=== PATIENT | female | born 1995 | race Two or more races ===

== ENCOUNTER 2017-12-01 12:10 | Inpatient (IN) | payer OTHER ==
[2017-12-01] MEDS ORDERED: Sodium Chloride 0.9% 10 ML Syringe FLUSH PRN (12:39)
[2017-12-01] MEDS ORDERED: Oxytocin/Lactated Ringers 10 UNIT/1,000 ML BAG IV SCH (12:45)
[2017-12-01] MEDS ORDERED: diphenhydrAMINE 50 MG/ML SDV IVPUSH PRN (17:37)
[2017-12-01] MEDS ORDERED: ePHEDrine 50 MG/ML SDV IVPUSH PRN (17:37)
[2017-12-01] MEDS ORDERED: fentaNYL 100 MCG/2 ML SDV EPIDUR PRN (17:37)
[2017-12-01] MEDS ORDERED: Bupivacaine/fentaNYL/NS 100 ML Bag EPIDUR SCH (17:45)
[2017-12-01] MEDS: Nalbuphine 20 MG/ML 1 ML Syringe IVPUSH PRN ×2 (17:52→20:23)
--- NOTE | 2017-12-01 18:04 | PCM.HP ---
H&P History of Present Illness - General Date of Service: 12/01/17 Admit Problem/Dx: Admission Diagnosis/Problem Admission Diagnosis/Problem : Labor established Source of Information: Patient History Limitations: Reports: No Limitations - History of Present Illness Initial Comments - Free Text/Narative: Joanna is a 22-year-old 1 para 0 female who is admitted to labor and delivery. GARRISON is set at 12/11/17 by ultrasound done at 9 weeks 5/7 days on with uncertain last menstrual period date. Patient had menarche at age 10 and cycles occur every 28 days. Joanna was in [place] and had an unremarkable course. care started at 9 weeks and 5/7 days gestational age. She gained 15.2 pounds (from 213.8-229) during the course of the . Fundal height growth was appropriate. No problems were encountered. Vital signs remained stable throughout the course. Laboratory testing showed her blood type to be O+ with a negative antibody screen. Initial labs showed a hemoglobin of 14.2 and a platelet count of 272,000. She is rubella immune. RPR is nonreactive. Urine culture was unremarkable. Hepatitis B surface antigen and HIV assays were both negative. Chlamydia and gonorrhea both negative. Second trimester labs showed a hemoglobin of 12.6 and a platelet count of 272,000. One hour glucose tolerance test was normal at 115. Group B strep screen was done and found to be negative. She received TDAP vaccine on September 28, 2017. Allergies: None Medications: 1. vitamin 1 by mouth daily 2. Colace 100 mg oral capsule twice daily as needed for constipation 3. Ondansetron HCL 4 mg oral tablet taken by mouth every 4 hours PRN for nausea Past Medical History: 1. Exercise induced asthma; infrequent inhaler use as needed Past Surgical History: 1. Tonsillectomy 2014 Family History: Mother is alive with hypertension. She had gestational diabetes mellitus in . Dad is alive with AODM. Adopted. One brother alive and well. Two sisters alive. Maternal grandmother alive with AODM and hypertension. Maternal grandfather alive with a history of CVA, DVT, aneurism, and hypertension. No bleeding, other problems, or anesthesia concerns in family. Social History: Patient is in a relationship with the baby's father, Ari. They live in [place]. She does not use any significant amount of alcohol, drugs, or tobacco but does report some alcohol use early in the . 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 (In general patient presently feels well. She reports good activity.) Exam - Exam Exam: See Below - Vital Signs Vital Signs: Last Vital Signs Temp 97.1 F 12/01/17 12:39 Pulse 83 12/01/17 12:39 Resp 16 12/01/17 12:39 BP 137/77 12/01/17 12:39 Pulse Ox Weight: 230 lb 6.4 oz - Exam General: Alert, Oriented, Cooperative HEENT: Conjunctiva Clear, EACs Clear, EOMI, Hearing Intact, Mucosa Moist & [place] , Nares Patent, PERRLA Neck: Supple, Trachea Midline, 2 Lungs: Clear to Auscultation, Normal Respiratory Effort Cardiovascular: Regular Rate, Regular Rhythm GI/Abdominal Exam: Normal Bowel Sounds (Female) Exam: Normal External Exam (Changes associated with with increase in fundal height) Rectal (Female) Exam: Deferred Back Exam: Normal Inspection, Full Range of Motion, NT Extremities: Normal Inspection, Normal Range of Motion, Non-Tender, No Pedal Edema, Normal Capillary Refill Peripheral Pulses: 2+: Carotid (L), Carotid (R), Radial (L), Radial (R), Posterior Tibial (L), Posterior Tibial (R), Dorsalis Pedis (L), Dorsalis Pedis ( R) Skin: Warm, Dry, Intact Neurological: Cranial Nerves Intact, Reflexes Equal Bilateral Neuro Extensive - Mental Status: Alert, Oriented x3, Normal Mood/Affect, Normal Cognition Neuro Extensive - Motor, Sensory, Reflexes: CN II-XII Intact, Normal Gait Psychiatric: Alert, Normal Affect, Normal Mood Physical Exam Comments:: Blood pressure on last evaluation in clinic on 11/30 was 110/68. Weight was 229. Abdomen is protuberant from with a last fundal height of 38.5 cm and baby in vertex position. Cervical exam on 11/30 showed the cervix to be dilated to 2cm, 90% effaced, soft, and mid position. - Patient Data Lab Results Last 24 hrs: Laboratory Results - last 24 hr 12/01/17 Range/Units 13:15 WBC 10.91 H (3.98-10.04) K/mm3 RBC 4.18 (3.98-5.22) M/mm3 Hgb 13.3 (11.2-15.7) gm/L Hct 38.3 (34.1-44.9) % MCV 91.6 (79.4-94.8) fl MCH 31.8 (25.6-32.2) pg MCHC 34.7 (32.2-35.5) g/dl RDW Std Deviation 43.9 (36.4-46.3) fL Plt Count 269 (182-369) K/mm3 MPV 9.6 (9.4-12.3) fl Neut % (Auto) 81.4 H (34.0-71.1) % Lymph % (Auto) 12.6 L (19.3-51.7) % [place] % (Auto) 5.2 (4.7-12.5) % Eos % (Auto) 0.2 L (0.7-5.8) Baso % (Auto) 0.1 (0.1-1.2) % Neut # (Auto) 8.88 H (1.56-6.13) K/mm3 Lymph # (Auto) 1.37 (1.18-3.74) K/mm3 Ward # (Auto) 0.57 H (0.24-0.36) K/mm3 Eos # (Auto) 0.02 L (0.04-0.36) K/mm3 Baso # (Auto) 0.01 (0.01-0.08) K/mm3 Result Diagrams: 12/01/17 13:15 - Problem List (1) SNOMED Code(s): 69357935 ICD Code: Z34.90 - ENCNTR FOR SUPRVSN OF NORMAL , UNSP, UNSP TRIMESTER Status: Acute Current Visit: Yes Problem List Initiated/Reviewed/Updated: Yes Orders Last 24hrs: Active Orders 24 hr Category Date Time Status Admission Status [Patient Status] [ADT] Routine ADT 12/01/17 12:42 Active Activity as Tolerated [RC] PFP Care 12/01/17 12:39 Active Communication Order [RC] ASDIRECTED Care 12/01/17 12:39 Active Heart Tones [RC] ASDIRECTED Care 12/01/17 12:39 Active Notify Provider [RC] ASDIRECTED Care 12/01/17 17:37 Active Notify Provider [RC] PFP Care 12/01/17 12:39 Active Notify Provider [RC] PRN Care 12/01/17 12:39 Active Peripheral IV Care [RC] . DIRECTED Care 12/01/17 12:39 Active Vital Signs [RC] PER UNIT ROUTINE Care 12/01/17 12:39 Active Clear Liquid Diet [DIET] Diet 12/01/17 Lunch Active Regular Diet [DIET] Diet 12/01/17 Dinner Active RAPID PLASMA REAGIN,RPR [CHEM] Routine Lab 12/01/17 13:15 Received Bupivacaine/fentaNYL/NS [fentaNYL/Bupivacaine/NS 2 MCG- Med 12/01/17 17:45 Ordered 0.125% 100 ML] 100 ml EPIDUR ASDIRECTED Lactated Ringers [Ringers, Lactated] 1,000 ml Med 12/01/17 12:45 Active IV ASDIRECTED Nalbuphine [Nubain] Med 12/01/17 12:39 Active 10 mg IVPUSH Q2H PRN Oxytocin/Lactated Ringers [Pitocin in LR 10 Units/1,000 Med 12/01/17 12:45 Active ML] 10 unit in 1,000 ml IV .CONTINUOUS Sodium Chloride 0.9% [Saline Flush] Med 12/01/17 12:39 Active 10 ml FLUSH ASDIRECTED PRN diphenhydrAMINE [Benadryl] Med 12/01/17 17:37 Ordered 25 mg IVPUSH Q6H PRN ePHEDrine [ePHEDrine Sulfate] Med 12/01/17 17:37 Ordered 5 mg IVPUSH ASDIRECTED PRN fentaNYL [Sublimaze] Med 12/01/17 17:37 Ordered 100 mcg EPIDUR Q3H PRN Electronic Heart Tones Ext w TOCO [WOMSER] Oth 12/01/17 12:39 Ordered Routine Electronic Heart Tones Internal [WOMSER] Per Unit Oth 12/01/17 12:39 Ordered Routine Peripheral IV Insertion Adult [OM.PC] Routine Oth 12/01/17 12:39 Ordered Resuscitation Status Routine Resus Stat 12/01/17 12:39 Ordered Medication Orders Diphenhydramine HCl (Benadryl) 25 mg IVPUSH Q6H PRN PRN Reason: pruritis Ephedrine Sulfate (Ephedrine Sulfate) 5 mg IVPUSH ASDIRECTED PRN PRN Reason: Hypotension Fentanyl (Sublimaze) 100 mcg EPIDUR Q3H PRN PRN Reason: Pain Fentanyl/Bupivacaine HCl (Fentanyl/Bupivacaine/Ns 2 Mcg-0.125% 100 Ml) 100 ml EPIDUR ASDIRECTED AMADOR Lactated Ringer's (Ringers, Lactated) 1,000 mls @ 100 mls/hr IV ASDIRECTED AMADOR Oxytocin/Lactated Ringer's (Pitocin In Lr 10 Units/1,000 Ml) 10 unit in 1,000 mls @ 500 mls/hr IV .CONTINUOUS AMADOR Nalbuphine HCl (Nubain) 10 mg IVPUSH Q2H PRN PRN Reason: pain Sodium Chloride (Saline Flush) 10 ml FLUSH ASDIRECTED PRN PRN Reason: Keep Vein Open Assessment/Plan Comment:: Assessment 1. 38 4/7 week intrauterine upon admission, in early labor * Presented at 1215 hours with cervical dilation of 3-4 cm and contractions every 3-5 minutes * At 1800 hours, cervix 4+ cm dilated, 95% effaced, and Dr. Liz ruptured membranes with clear fluid 2. Rubella immune, GBS negative, O+ blood type 3. Patient plans to breast feed Plan 1. Anticipate normal spontaneous vaginal delivery 2. Patient desires natural childbirth, but is okay with epidural if needed 3. Support desire
[2017-12-01] MEDS: Lactated Ringers 1,000 ML IV SCH ×2 (20:54→22:06)
--- NOTE | 2017-12-01 21:32 | PCM.PREANE ---
Preanesthetic Assessment - Procedure Proposed Procedure: gokul - Anesthesia/Transfusion/Family Hx Anesthesia History: Prior Anesthesia Without Reaction Family History of Anesthesia Reaction: No Transfusion History: No Prior Transfusion(s) - Review of Systems General: No Symptoms Pulmonary: No Symptoms Cardiovascular: No Symptoms Gastrointestinal: No Symptoms Neurological: No Symptoms Other: Reports: None - Physical Assessment Respiratory Rate: 16 Vital Signs: Last Vital Signs Temp 97.1 F 12/01/17 12:39 Pulse 83 12/01/17 12:39 Resp 16 12/01/17 12:39 BP 137/77 12/01/17 12:39 Pulse Ox Height: 5 ft 4 in Weight: 104.508 kg ASA Class: 2 Mental Status: Alert & Oriented x3 Airway Class: Mallampati = 1 Dentition: Reports: Normal Dentition Thyro-Mental Finger Breadths: 3 Mouth Opening Finger Breadths: 3 ROM/Head Extension: Full Lungs: Clear to Auscultation, Normal Respiratory Effort Cardiovascular: Regular Rate, Regular Rhythm - Lab Values: Laboratory Last Values WBC 10.91 K/mm3 (3.98-10.04) H 12/01/17 13:15 RBC 4.18 M/mm3 (3.98-5.22) 12/01/17 13:15 Hgb 13.3 gm/L (11.2-15.7) 12/01/17 13:15 Hct 38.3 % (34.1-44.9) 12/01/17 13:15 MCV 91.6 fl (79.4-94.8) 12/01/17 13:15 MCH 31.8 pg (25.6-32.2) 12/01/17 13:15 MCHC 34.7 g/dl (32.2-35.5) 12/01/17 13:15 RDW Std Deviation 43.9 fL (36.4-46.3) 12/01/17 13:15 Plt Count 269 K/mm3 (182-369) 12/01/17 13:15 MPV 9.6 fl (9.4-12.3) 12/01/17 13:15 Neut % (Auto) 81.4 % (34.0-71.1) H 12/01/17 13:15 Lymph % (Auto) 12.6 % (19.3-51.7) L 09/12/18 13:15 [place] % (Auto) 5.2 % (4.7-12.5) 12/01/17 13:15 Eos % (Auto) 0.2 (0.7-5.8) L 12/01/17 13:15 Baso % (Auto) 0.1 % (0.1-1.2) 12/01/17 13:15 Neut # (Auto) 8.88 K/mm3 (1.56-6.13) H 12/01/17 13:15 Lymph # (Auto) 1.37 K/mm3 (1.18-3.74) 12/01/17 13:15 [place] # (Auto) 0.57 K/mm3 (0.24-0.36) H 12/01/17 13:15 Eos # (Auto) 0.02 K/mm3 (0.04-0.36) L 12/01/17 13:15 Baso # (Auto) 0.01 K/mm3 (0.01-0.08) 12/01/17 13:15 - Allergies Allergies/Adverse Reactions: Allergies Allergy/AdvReac Type Severity Reaction Status Date / Time No Known Allergies Allergy Verified 12/01/17 12:39 - Blood Blood Available: No - Acknowledgements Anesthesia Type Planned: Epidural Pt an Appropriate Candidate for the Planned Anesthesia: Yes Alternatives and Risks of Anesthesia Discussed w Pt/Guardian: Yes Pt/Guardian Understands and Agrees with Anesthesia Plan: Yes PreAnesthesia Questionnaire Cardiovascular History: Reports: None Respiratory History: Reports: Asthma (exercise induced) 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: 0 - Past Surgical History HEENT Surgical History: Reports: Tonsillectomy - SUBSTANCE USE Smoking Status *Q: Former Smoker (quit 2 years ago) Tobacco Use Within Last Twelve Months: No Second Hand Smoke Exposure: No Days Per Week of Alcohol Use: 0 Recreational Drug Use History: No - HOME MEDS Home Medications: Home Meds Vits #93/Iron Fum/FA [ Formula Tablet] 1 each PO DAILY [History] - CURRENT (IN HOUSE) MEDS Current Meds: Current Medications Diphenhydramine HCl (Benadryl) 25 mg IVPUSH Q6H PRN PRN Reason: pruritis Ephedrine Sulfate (Ephedrine Sulfate) 5 mg IVPUSH ASDIRECTED PRN PRN Reason: Hypotension Fentanyl (Sublimaze) 100 mcg EPIDUR Q3H PRN PRN Reason: Pain Fentanyl/Bupivacaine HCl (Fentanyl/Bupivacaine/Ns 2 Mcg-0.125% 100 Ml) 100 ml EPIDUR ASDIRECTED AMADOR Lactated Ringer's (Ringers, Lactated) 1,000 mls @ 100 mls/hr IV ASDIRECTED AMADOR Last Admin: 12/01/17 20:54 Dose: 100 mls/hr Oxytocin/Lactated Ringer's (Pitocin In Lr 10 Units/1,000 Ml) 10 unit in 1,000 mls @ 500 mls/hr IV .CONTINUOUS AMADOR Nalbuphine HCl (Nubain) 10 mg IVPUSH Q2H PRN PRN Reason: pain Last Admin: 12/01/17 20:23 Dose: 10 mg Sodium Chloride (Saline Flush) 10 ml FLUSH ASDIRECTED PRN PRN Reason: Keep Vein Open
[2017-12-02] MEDS ORDERED: Bupivacaine 0.25% 10 ML SDV ONE (01:00)
[2017-12-02] MEDS ORDERED: Albuterol 6.7 GM Inhaler INH PRN (01:24)
[2017-12-02] MEDS ORDERED: Oxytocin/Lactated Ringers 10 UNIT/1,000 ML BAG IV SCH (01:30)
[2017-12-02] MEDS ORDERED: Witch Hazel Medicated Pads 100/Jar TOP PRN (04:20)
[2017-12-02] MEDS ORDERED: Lanolin 100% Cream 7 GM Tube TOP PRN (04:20)
[2017-12-02] MEDS ORDERED: Benzocaine/Menthol 20%-0.5% Spray 56 GM Canister TOP PRN ×2 (04:20→20:24)
[2017-12-02] MEDS ORDERED: Acetaminophen 325 MG Tab PO PRN (04:20)
[2017-12-02] MEDS ORDERED: Ibuprofen 600 MG Tab PO PRN (04:20)
[2017-12-02] MEDS ORDERED: Docusate Sodium 100 MG Cap PO PRN (04:20)
--- NOTE | 2017-12-02 04:25 | PCM.SN ---
- Free Text/Narrative Note: Labor and delivery note: Joanna is a 22-year-old 1 now para 1001 female was admitted on 2017 in early active labor. She has an GARRISON of 12/11/2017 but appeared to be dilating and progressive slowly changing her cervix. She was admitted at 4 cm, 90% effaced, soft, mid position. He is monitored for short period time and one early labor was confirmed patient underwent artificial rupture membranes with resultant clear amniotic fluid. She progressed steadily to about 8 cm using Nubain for pain control. At 8 cm patient opted for an epidural. She progressed to complete cervical dilation and pushed for approximately 3-1/2 hours spontaneously delivered a viable, pizano, male with Apgars of 8 and 9 , a length of 19.5 inches, overweight of 6 pounds 10.9 ounces (3030 g) in a direct occiput anterior position. Shoulders delivered and baby was completely delivered and placed on mom's abdomen Cord was clamped 2 and cut by the baby's father after about 30-60 seconds worth of pulsation was allowed. The umbilical cord had 3 vessels. The placenta did not detach and deliver first 1 hour after baby delivered and therefore patient was monitored. No significant bleeding was noted. After approximately an hour and half the time of delivery placenta still had not delivered. There appears to be a circular band in the lower uterine segment just above the cervix which appears to be contracted and causing the placenta to remain in utero. Patient has had approximately 200 mL of bleeding total since the time of delivery. She has been maintained on IV Pitocin since delivery. She still has epidural in place. Assessment: 1. Normal spontaneous vaginal delivery. 2. Retained placenta. Plan: 1. We'll bolster the epidural to anesthetic effect and proceed with exam under anesthesia and removal of placenta. The procedure, risks, benefits, alternatives of care including continued monitoring all discussed with patient. She appears to understand and wishes to proceed. Consent is signed. Discussion has been held with patient concerning possibility of an adherent placenta, placenta accreta and possible need for more surgery up to and potentially including hysterectomy. She appears understand and would like us to proceed. 2. Ancef 2 g IV preop for infection prophylaxis 3. SCDs intraoperatively
[2017-12-02] MEDS ORDERED: Methylergonovine 0.2 MG/1 ML Amp ONE ×2 (04:30→07:03)
[2017-12-02] MEDS ORDERED: Methylergonovine 0.2 MG/1 ML Amp IM STA (05:02)
[2017-12-02] MEDS: Lactated Ringers 1,000 ML IV SCH ×2 (05:07→05:51)
[2017-12-02] MEDS ORDERED: ceFAZolin 2 GM in Premix Bag 1 BAG IV ONE (06:18)
[2017-12-02] MEDS ORDERED: Lidocaine 2% with EPINEPHrine 1:200,000 20 ML SDV ONE (06:29)
[2017-12-02] MEDS ORDERED: Sodium Bicarbonate 8.4% 50 MEQ/50 ML SDV ONE (06:29)
[2017-12-02] MEDS ORDERED: fentaNYL 100 MCG/2 ML SDV ONE ×2 (06:30→06:56)
[2017-12-02] MEDS ORDERED: Meperidine PF 50 MG/ML Syringe IVPUSH PRN (06:52)
[2017-12-02] MEDS ORDERED: Ondansetron 4 MG/2 ML SDV IVPUSH PRN (06:52)
[2017-12-02] MEDS ORDERED: fentaNYL 100 MCG/2 ML SDV IVPUSH PRN (06:52)
[2017-12-02] MEDS ORDERED: HYDROmorphone 0.5 MG/0.5 ML Syringe IVPUSH PRN (06:52)
[2017-12-02] MEDS ORDERED: Midazolam 1 MG/ML 2 ML SDV ONE (06:56)
[2017-12-02] MEDS ORDERED: Lactated Ringers 1,000 ML ONE (07:03)
--- NOTE | 2017-12-02 07:37 | PCM.POSTAN ---
POST ANESTHESIA ASSESSMENT - MENTAL STATUS Mental Status: Alert, Oriented - VITAL SIGNS Pulse Rate: 74 SaO2: 99 Resp Rate: 22 Blood Pressure: 96/65 Temperature: 97.6 F - RESPIRATORY Respiratory Status: Respiratory Rate WNL, Airway Patent, O2 Saturation Stable, Supplemental Oxygen - CARDIOVASCULAR CV Status: Pulse Rate WNL, Blood Pressure Stable - GASTROINTESTINAL GI Status: No Symptoms - PAIN Pain Score: 0 - POST OP HYDRATION Hydration Status: Adequate & Stable
--- NOTE | 2017-12-02 07:37 | PCM.OPNOTE ---
- General Post-Op/Procedure Note Date of Surgery/Procedure: 12/02/17 Findings: Retained placenta Pre Op Diagnosis: Term , deliveredretained placenta Post-Op Diagnosis: Same Anesthesia Technique: Epidural Primary Surgeon: Wily Liz Secondary Surgeon: Ariana Benavides Anesthesia Provider: Dc Romero Reason Sorority Supervisor Was Necessary: Retraction, assistance, patient safety, quality of care Role of Sorority Supervisor: Same Fluid Replacement, Intraop: 1,000 EBL in mLs: 1,000 Complications: None Condition: Good Free Text/Narrative:: Surgery duration: 28 minutes Procedure: Patient is brought to the operating room and placed in a supine position operating table. Patient already had an epidural in place from her labor and analgesia. The epidural was bolstered 2 anesthetic level. She was placed in dorsal lithotomy position and prepped in usual fashion. She received 2 g of Ancef IV. She had sequential compression stockings in place for DVT prophylaxis. A weighted speculum was placed in the vagina. The anterior lip the cervix was grasped with a ring forceps. Attempt was made to tease the placenta out. The placenta did come out, but in piecemeal fashion. All material removed was discarded. It appeared that the placental fragments were somewhat adherent to the uterus. A large curette was then introduced and attempt was made to curet the endometrial cavity. A 14 mm suction curette was also used to evacuate the uterine cavity. Methergine 0.2 mg IM was given to facilitate a contraction the uterus and decrease size. This worked well and patient had good uterine firmness related to this. During the procedure it was felt that most, if not all of the placenta had been removed. This however could not be entirely confirmed. The patient had a right vaginal and right labial laceration from delivery. The labial portion of this laceration had opened with the manipulation that occurred in the removal of the placenta in the OR. This was reapproximated with a short running suture of 3-0 Monocryl. Patient was returned to supine position and was discharged from the operating room in good condition.
[2017-12-02] MEDS ORDERED: Methylergonovine 0.2 MG/1 ML Amp IM SCH (07:55)
[2017-12-02] MEDS: Methylergonovine 0.2 MG/1 ML Amp IM SCH ×2 (11:16→15:06)
[2017-12-02] MEDS: Ibuprofen 600 MG Tab PO PRN ×2 (12:24→18:21)
[2017-12-03] MEDS: Ibuprofen 600 MG Tab PO PRN ×4 (00:18→22:43)
[2017-12-03] MEDS: Acetaminophen 325 MG Tab PO PRN ×2 (05:38→20:13)
--- NOTE | 2017-12-03 07:56 | PCM48HPAN ---
Post Anesthesia Note - EVALUATION WITHIN 48HRS OF ANESTHETIC Vital Signs in Normal Range: Yes Patient Participated in Evaluation: Yes Respiratory Function Stable: Yes Airway Patent: Yes Cardiovascular Function Stable: Yes Hydration Status Stable: Yes Pain Control Satisfactory: Yes Nausea and Vomiting Control Satisfactory: Yes Mental Status Recovered: Yes
[2017-12-03] MEDS ORDERED: Witch Hazel Medicated Pads 100/Jar TOP PRN (10:30)
--- NOTE | 2017-12-04 07:09 | PCM.PNPP ---
- General Info Date of Service: 12/04/17 Functional Status: Reports: Pain Controlled, Tolerating Diet, Ambulating, Urinating - Review of Systems General: Reports: No Symptoms Pulmonary: Reports: No Symptoms Cardiovascular: Reports: No Symptoms Gastrointestinal: Reports: No Symptoms Genitourinary: Reports: No Symptoms (Denies any heavy bleeding ) Musculoskeletal: Reports: No Symptoms - Patient Data Vital Signs - Most Recent: Last Vital Signs Temp 36.4 C 12/04/17 03:45 Pulse 82 12/04/17 03:45 Resp 16 12/03/17 20:20 BP 112/69 12/04/17 03:45 Pulse Ox 99 12/04/17 03:45 Weight - Most Recent: 104.508 kg Med Orders - Current: Current Medications Acetaminophen (Tylenol) 650 mg PO Q4H PRN PRN Reason: mild pain or fever Last Admin: 12/03/17 20:13 Dose: 650 mg Benzocaine/Menthol (Dermoplast Pain Relief [place]) 56 gm TOP ASDIRECTED PRN PRN Reason: Pain Last Admin: 12/02/17 22:12 Dose: 1 applic Ibuprofen (Motrin) 600 mg PO Q4H PRN PRN Reason: Mild pain or fever Last Admin: 12/03/17 22:43 Dose: 600 mg Witch Eboni (Tucks) 1 pad TOP ASDIRECTED PRN PRN Reason: Pain Discontinued Medications Acetaminophen (Tylenol) 650 mg PO Q4H PRN PRN Reason: mild pain or fever Albuterol (Proventil Hfa) 0 gm INH Q4H PRN PRN Reason: Shortness of Breath Last Admin: 12/02/17 01:45 Dose: 2 puff Benzocaine/Menthol (Dermoplast Pain Relief [place]) 0 gm TOP ASDIRECTED PRN PRN Reason: Perineal Comfort Measure Bupivacaine HCl (Sensorcaine-Mpf 0.25%) 10 ml .ROUTE .STK-MED ONE Stop: 12/02/17 01:01 Diphenhydramine HCl (Benadryl) 25 mg IVPUSH Q6H PRN PRN Reason: pruritis Docusate Sodium (Colace) 100 mg PO BID PRN PRN Reason: Constipation Emollient Ointment (Lansinoh Hpa) 0 gm TOP ASDIRECTED PRN PRN Reason: Sore Nipples Ephedrine Sulfate (Ephedrine Sulfate) 5 mg IVPUSH ASDIRECTED PRN PRN Reason: Hypotension Fentanyl (Sublimaze) 100 mcg EPIDUR Q3H PRN PRN Reason: Pain Last Admin: 12/01/17 21:32 Dose: 100 mcg Fentanyl (Sublimaze) Confirm Administered Dose 100 mcg .ROUTE .STK-MED ONE Stop: 12/02/17 06:31 Fentanyl (Sublimaze) 50 mcg IVPUSH Q5M PRN PRN Reason: Pain Fentanyl (Sublimaze) Confirm Administered Dose 100 mcg .ROUTE .STK-MED ONE Stop: 12/02/17 06:57 Fentanyl/Bupivacaine HCl (Fentanyl/Bupivacaine/Ns 2 Mcg-0.125% 100 Ml) 100 ml EPIDUR ASDIRECTED AMADOR Last Admin: 12/01/17 21:32 Dose: 100 ml Hydromorphone HCl (Dilaudid) 0.5 mg IVPUSH ONETIME PRN PRN Reason: Pain (severe 7-10) Lactated Ringer's (Ringers, Lactated) 1,000 mls @ 100 mls/hr IV ASDIRECTED AMADOR Last Admin: 12/01/17 22:06 Dose: 100 mls/hr Oxytocin/Lactated Ringer's (Pitocin In Lr 10 Units/1,000 Ml) 10 unit in 1,000 mls @ 500 mls/hr IV .CONTINUOUS AMADOR Oxytocin/Lactated Ringer's (Pitocin In Lr 10 Units/1,000 Ml) 10 unit in 1,000 mls @ 12 mls/hr IV TITRATE AMADOR; Protocol Last Titration: 12/02/17 04:20 Dose: 50 mls/hr Lactated Ringer's (Ringers, Lactated) 1,000 mls @ 150 mls/hr IV ASDIRECTED AMADOR Last Admin: 12/02/17 05:51 Dose: 150 mls/hr Cefazolin Sodium/Dextrose 2 gm (/ Premix) 50 mls @ 100 mls/hr IV ONETIME ONE Stop: 12/02/17 06:47 Last Admin: 12/02/17 20:03 Dose: Not Given Lactated Ringer's (Ringers, Lactated) Confirm Administered Dose 1,000 mls @ as directed .ROUTE .STK-MED ONE Stop: 12/02/17 07:04 Ibuprofen (Motrin) 600 mg PO Q4H PRN PRN Reason: Mild pain or fever Lidocaine/Epinephrine (Xylocaine-Mpf 2%-Epi 1:200,000) Confirm Administered Dose 20 ml .ROUTE .Reclog-MED ONE Stop: 12/02/17 06:30 Meperidine HCl (Demerol) 12.5 mg IVPUSH ONETIME PRN PRN Reason: shivering Methylergonovine Maleate (Methergine) Confirm Administered Dose 0.2 mg .ROUTE .Reclog-MED ONE Stop: 12/02/17 04:31 Last Admin: 12/02/17 05:05 Dose: 0.2 mg Methylergonovine Maleate (Methergine) 0.2 mg IM NOW STA Stop: 12/02/17 05:03 Last Admin: 12/02/17 07:07 Dose: Not Given Methylergonovine Maleate (Methergine) Confirm Administered Dose 0.2 mg .ROUTE .Reclog-MED ONE Stop: 12/02/17 07:04 Last Admin: 12/02/17 07:10 Dose: 0.2 mg Methylergonovine Maleate (Methergine) 0.2 mg IM Q4H [facility] Last Admin: 12/02/17 08:51 Dose: Not Given Methylergonovine Maleate (Methergine) 0.2 mg IM Q4H [facility] Last Admin: 12/02/17 15:06 Dose: Not Given Midazolam HCl (Versed 1 Mg/Ml) Confirm Administered Dose 2 mg .ROUTE .Reclog-MED ONE Stop: 12/02/17 06:57 Nalbuphine HCl (Nubain) 10 mg IVPUSH Q2H PRN PRN Reason: pain Last Admin: 12/01/17 20:23 Dose: 10 mg Ondansetron HCl (Zofran) 4 mg IVPUSH ONETIME PRN PRN Reason: Nausea/Vomiting Sodium Bicarbonate (Sodium Bicarbonate 8.4%) Confirm Administered Dose 50 meq .ROUTE .Reclog-MED ONE Stop: 12/02/17 06:30 Sodium Chloride (Saline Flush) 10 ml FLUSH ASDIRECTED PRN PRN Reason: Keep Vein Open Witch Eboni (Tucks) 1 pad TOP ASDIRECTED PRN PRN Reason: Hemorrhoid pain - Interaction Disposition, : [place] in Room with Family Infant Interaction: Holding Infant Feeding: Attempted ; Nursed Fair/Poor Support Person: Significant Other - Recovery Exam Fundal Tone: Firm Fundal Level: At Umbilicus Fundal Placement: Midline Lochia Amount: Small Lochia Color: Rubra/Red Perineum Description: Intact, Minimal Bruising/Swelling Other Perinuem Description: repaired x 2 Episiotomy/Laceration: Approximated Bladder Status: Voiding Urinary Elimination: Voided Other Urinary Elimination, : pt states it is burning, dermaplast issued and instructed pt how to use - Exam General: Alert, Oriented, Cooperative GI/Abdominal Exam: Soft, Non-Tender Extremities: Normal Inspection Skin: Warm, Dry, Intact - Problem List & Annotations (1) 38 weeks gestation of SNOMED Code(s): 47495896 Code(s): Z3A.38 - 38 WEEKS GESTATION OF Status: Acute Current Visit: Yes (2) Normal labor SNOMED Code(s): 87949898 Code(s): O80 - ENCOUNTER FOR FULL-TERM UNCOMPLICATED DELIVERY; Z37.9 - OUTCOME OF DELIVERY, UNSPECIFIED Status: Acute Current Visit: Yes (3) Vaginal delivery SNOMED Code(s): 131767758 Code(s): O80 - ENCOUNTER FOR FULL-TERM UNCOMPLICATED DELIVERY Status: Acute Current Visit: Yes (4) Retained placenta SNOMED Code(s): 135100386 Code(s): O73.0 - RETAINED PLACENTA WITHOUT HEMORRHAGE Status: Acute Current Visit: Yes (5) S/P D&C (status post dilation and curettage) SNOMED Code(s): 831884850, 96687841, 067307775 Code(s): Z98.890 - OTHER SPECIFIED POSTPROCEDURAL STATES Status: Acute Current Visit: Yes - Problem List Review Problem List Initiated/Reviewed/Updated: Yes - Assessment Assessment:: 22 y/o G1 now P1001 PPD #2 from at 38 4/7 wks - Plan Plan:: * Routine cares * Encourage breast feeding * Minimal bleeding currently. Reviewed precautions. Follow up with Dr. Liz in 2 weeks * Discharge home today
[2017-12-04] MEDS: Ibuprofen 600 MG Tab PO PRN (07:35)
--- NOTE | 2017-12-04 07:55 | PCM.DCSUM1 ---
Discharge Summary - Discharge Data Discharge Date: 12/04/17 Discharge Disposition: Home, Self-Care 01 Condition: Good - Discharge Diagnosis/Problem(s) (1) 38 weeks gestation of SNOMED Code(s): 99718386 ICD Code: Z3A.38 - 38 WEEKS GESTATION OF Status: Acute Current Visit: Yes (2) Normal labor SNOMED Code(s): 39793155 ICD Code: O80 - ENCOUNTER FOR FULL-TERM UNCOMPLICATED DELIVERY; Z37.9 - OUTCOME OF DELIVERY, UNSPECIFIED Status: Acute Current Visit: Yes (3) Vaginal delivery SNOMED Code(s): 170908637 ICD Code: O80 - ENCOUNTER FOR FULL-TERM UNCOMPLICATED DELIVERY Status: Acute Current Visit: Yes (4) Retained placenta SNOMED Code(s): 518059181 ICD Code: O73.0 - RETAINED PLACENTA WITHOUT HEMORRHAGE Status: Acute Current Visit: Yes Qualifiers: Retained placenta detail: complete placenta Qualified Code(s): O73.0 - Retained placenta without hemorrhage (5) S/P D&C (status post dilation and curettage) SNOMED Code(s): 061456429, 55175788, 323273667 ICD Code: Z98.890 - OTHER SPECIFIED POSTPROCEDURAL STATES Status: Acute Current Visit: Yes - Patient Summary/Data Complications: None Consults: None Recommended Follow-up Testing/Procedures: Follow up in 2 weeks for check Hospital Course: 22 y/o at 38 4/7 wks presented in labor. She progressed well and underwent a vaginal delivery. She did have a retained placenta which required a D&C. See operative note. she did well and otherwise was meeting all goals. Was discharged home on PPD#2 - Patient Instructions Diet: Regular Diet as Tolerated Activity: As Tolerated Activity, Other: Pelvic Rest for 6 weeks Driving: May Drive Today Showering/Bathing: May Shower Showering/Bathing, Other: May Bathe Notify Provider of: Fever, Increased Pain, Swelling and Redness, Drainage, Nausea and/or Vomiting - Discharge Plan *PRESCRIPTION DRUG MONITORING PROGRAM REVIEWED*: Not Applicable *COPY OF PRESCRIPTION DRUG MONITORING REPORT IN PATIENT WILI: Not Applicable Home Medications: Home Meds Vits #93/Iron Fum/FA [ Formula Tablet] 1 each PO DAILY [History] Acetaminophen [Tylenol] 650 mg PO Q4H PRN tablet 12/03/17 [Rx] Ibuprofen [Motrin] 600 mg PO Q4H PRN tablet 12/03/17 [Rx] Referrals: Wily Liz MD [Primary Care Provider] - (2 weeks ) - Discharge Summary/Plan Comment DC Time >30 min.: No - Patient Data Vitals - Most Recent: Last Vital Signs Temp 36.4 C 12/04/17 03:45 Pulse 82 12/04/17 03:45 Resp 16 12/03/17 20:20 BP 112/69 12/04/17 03:45 Pulse Ox 99 12/04/17 03:45 Weight - Most Recent: 104.508 kg Med Orders - Current: Current Medications Acetaminophen (Tylenol) 650 mg PO Q4H PRN PRN Reason: mild pain or fever Last Admin: 12/03/17 20:13 Dose: 650 mg Benzocaine/Menthol (Dermoplast Pain Relief [place]) 56 gm TOP ASDIRECTED PRN PRN Reason: Pain Last Admin: 12/02/17 22:12 Dose: 1 applic Ibuprofen (Motrin) 600 mg PO Q4H PRN PRN Reason: Mild pain or fever Last Admin: 12/04/17 07:35 Dose: 600 mg Witch [place] (Tucks) 1 pad TOP ASDIRECTED PRN PRN Reason: Pain Discontinued Medications Acetaminophen (Tylenol) 650 mg PO Q4H PRN PRN Reason: mild pain or fever Albuterol (Proventil Hfa) 0 gm INH Q4H PRN PRN Reason: Shortness of Breath Last Admin: 12/02/17 01:45 Dose: 2 puff Benzocaine/Menthol (Dermoplast Pain Relief [place]) 0 gm TOP ASDIRECTED PRN PRN Reason: Perineal Comfort Measure Bupivacaine HCl (Sensorcaine-Mpf 0.25%) 10 ml .ROUTE .STK-MED ONE Stop: 12/02/17 01:01 Diphenhydramine HCl (Benadryl) 25 mg IVPUSH Q6H PRN PRN Reason: pruritis Docusate Sodium (Colace) 100 mg PO BID PRN PRN Reason: Constipation Emollient Ointment (Lansinoh Hpa) 0 gm TOP ASDIRECTED PRN PRN Reason: Sore Nipples Ephedrine Sulfate (Ephedrine Sulfate) 5 mg IVPUSH ASDIRECTED PRN PRN Reason: Hypotension Fentanyl (Sublimaze) 100 mcg EPIDUR Q3H PRN PRN Reason: Pain Last Admin: 12/01/17 21:32 Dose: 100 mcg Fentanyl (Sublimaze) Confirm Administered Dose 100 mcg .ROUTE .STK-MED ONE Stop: 12/02/17 06:31 Fentanyl (Sublimaze) 50 mcg IVPUSH Q5M PRN PRN Reason: Pain Fentanyl (Sublimaze) Confirm Administered Dose 100 mcg .ROUTE .STK-MED ONE Stop: 12/02/17 06:57 Fentanyl/Bupivacaine HCl (Fentanyl/Bupivacaine/Ns 2 Mcg-0.125% 100 Ml) 100 ml EPIDUR ASDIRECTED AMADOR Last Admin: 12/01/17 21:32 Dose: 100 ml Hydromorphone HCl (Dilaudid) 0.5 mg IVPUSH ONETIME PRN PRN Reason: Pain (severe 7-10) Lactated Ringer's (Ringers, Lactated) 1,000 mls @ 100 mls/hr IV ASDIRECTED AMADOR Last Admin: 12/01/17 22:06 Dose: 100 mls/hr Oxytocin/Lactated Ringer's (Pitocin In Lr 10 Units/1,000 Ml) 10 unit in 1,000 mls @ 500 mls/hr IV .CONTINUOUS AMADOR Oxytocin/Lactated Ringer's (Pitocin In Lr 10 Units/1,000 Ml) 10 unit in 1,000 mls @ 12 mls/hr IV TITRATE AMADOR; Protocol Last Titration: 12/02/17 04:20 Dose: 50 mls/hr Lactated Ringer's (Ringers, Lactated) 1,000 mls @ 150 mls/hr IV ASDIRECTED AMADOR Last Admin: 12/02/17 05:51 Dose: 150 mls/hr Cefazolin Sodium/Dextrose 2 gm (/ Premix) 50 mls @ 100 mls/hr IV ONETIME ONE Stop: 12/02/17 06:47 Last Admin: 12/02/17 20:03 Dose: Not Given Lactated Ringer's (Ringers, Lactated) Confirm Administered Dose 1,000 mls @ as directed .ROUTE .STK-MED ONE Stop: 12/02/17 07:04 Ibuprofen (Motrin) 600 mg PO Q4H PRN PRN Reason: Mild pain or fever Lidocaine/Epinephrine (Xylocaine-Mpf 2%-Epi 1:200,000) Confirm Administered Dose 20 ml .ROUTE .NewsPin-Muzeek ONE Stop: 12/02/17 06:30 Meperidine HCl (Demerol) 12.5 mg IVPUSH ONETIME PRN PRN Reason: shivering Methylergonovine Maleate (Methergine) Confirm Administered Dose 0.2 mg .ROUTE .Neurala ONE Stop: 12/02/17 04:31 Last Admin: 12/02/17 05:05 Dose: 0.2 mg Methylergonovine Maleate (Methergine) 0.2 mg IM NOW STA Stop: 12/02/17 05:03 Last Admin: 12/02/17 07:07 Dose: Not Given Methylergonovine Maleate (Methergine) Confirm Administered Dose 0.2 mg .ROUTE .Neurala ONE Stop: 12/02/17 07:04 Last Admin: 12/02/17 07:10 Dose: 0.2 mg Methylergonovine Maleate (Methergine) 0.2 mg IM Q4H [facility] Last Admin: 12/02/17 08:51 Dose: Not Given Methylergonovine Maleate (Methergine) 0.2 mg IM Q4H [facility] Last Admin: 12/02/17 15:06 Dose: Not Given Midazolam HCl (Versed 1 Mg/Ml) Confirm Administered Dose 2 mg .ROUTE .Neurala ONE Stop: 12/02/17 06:57 Nalbuphine HCl (Nubain) 10 mg IVPUSH Q2H PRN PRN Reason: pain Last Admin: 12/01/17 20:23 Dose: 10 mg Ondansetron HCl (Zofran) 4 mg IVPUSH ONETIME PRN PRN Reason: Nausea/Vomiting Sodium Bicarbonate (Sodium Bicarbonate 8.4%) Confirm Administered Dose 50 meq .ROUTE .NewsPin-Muzeek ONE Stop: 12/02/17 06:30 Sodium Chloride (Saline Flush) 10 ml FLUSH ASDIRECTED PRN PRN Reason: Keep Vein Open [place] (Tucks) 1 pad TOP ASDIRECTED PRN PRN Reason: Hemorrhoid pain
== END 2017-12-04 10:55 | disposition home or self-care (01) | DRG 767 ==
LOC: JD.OBCHECK 12:10 → JD.OB 12:13 → JD.OBCHECK 12:42 → OBSVTOIN 12-02 03:37 → JD.OB 12-02 03:37
PROVIDERS: ADMIT Obstetrics & Gynecology; ATTEND Obstetrics & Gynecology
PROC: 10E0XZZ Delivery of Products of Conception, External Approach (ICD-10-PCS; principal; 2017-12-01)
PROC: 10907ZC Drainage of Amniotic Fluid, Therapeutic from Products of Conception, Via Natural or Artificial Opening (ICD-10-PCS; 2017-12-01)
PROC: 0HQ9XZZ Repair Perineum Skin, External Approach (ICD-10-PCS; 2017-12-01)
PROC: 0UQMXZZ Repair Vulva, External Approach (ICD-10-PCS; 2017-12-01)
PROC: 00HU33Z Insertion of Infusion Device into Spinal Canal, Percutaneous Approach (ICD-10-PCS; 2017-12-01)
PROC: 3E0R3BZ Introduction of Anesthetic Agent into Spinal Canal, Percutaneous Approach (ICD-10-PCS; 2017-12-01)
PROC: 10D17ZZ Extraction of Products of Conception, Retained, Via Natural or Artificial Opening (ICD-10-PCS; 2017-12-02)
PROC: 0UQMXZZ Repair Vulva, External Approach (ICD-10-PCS; 2017-12-02)
DX: O99.52 Diseases of the respiratory system complicating childbirth (principal); Z37.0 Single live birth; O73.1 Retained portions of placenta and membranes, without hemorrhage; Z3A.38 38 weeks gestation of pregnancy; J45.909 Unspecified asthma, uncomplicated; Z87.891 Personal history of nicotine dependence; Z79.899 Other long term (current) drug therapy; O70.0 First degree perineal laceration during delivery
CPT/HCPCS: 00940; 36415; 51701; 51702; 59025; 59300; 59409; 85025; 85027; 86592; A9270-GY; J2210; J2250; J2300; J2590; J3010; J3490; J7120

== ENCOUNTER 2017-12-06 21:14 | Inpatient (IN) | payer OTHER ==
[2017-12-06] MEDS ORDERED: Sodium Chloride 0.9% 10 ML Syringe FLUSH PRN (21:44)
[2017-12-06] MEDS ORDERED: Sodium Chloride 0.9% 1,000 ML IV SCH (21:45)
[2017-12-06] MEDS ORDERED: Acetaminophen 325 MG Tab PO ONE (21:58)
[2017-12-06] MEDS ORDERED: Piperacillin/Tazobactam 4.5 GM in Sodium Chloride 0.9% 100 ML IV ONE (22:05)
--- NOTE | 2017-12-06 22:30 | EDM.PDOC ---
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 She did start feeling warm yesterday and then started with fever chills about 3-4 hours ago. She is 1 para 1 just having delivered a healthy baby boy 4 days ago. She did have what sounds like some retained placenta did require D&C prior to discharge. She is had typical flow that has not sounded excessive since going home 2 days ago. Some lower pelvic and abdominal discomfort but nothing severe she did have some mild voiding dysuria yesterday but has not had that today. She was constipated and had a lot of pain with that did start having more normal BMs that discomfort has resolved. She denies chest pain at this point in time, cough or difficulty breathing. 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 Denies: Diarrhea, Vomiting : Reports: Dysuria (Yesterday, gone). Denies: Frequency, Urgency Musculoskeletal: Denies: Back Pain Skin: Reports: No Symptoms Neurological: Reports: Dizziness (Mild) ED EXAM, RENAL/ - Physical Exam Exam: See Below General Appearance: Alert, Moderate Distress Eye Exam: Bilateral Eye: PERRL Throat/Mouth: Normal Inspection, Normal Oropharynx Head: Atraumatic Neck: Supple, Full Range of Motion Respiratory/Chest: No Respiratory Distress, Lungs Clear, Normal Breath Sounds. No: Rhonchi, Wheezing Cardiovascular: Tachycardia GI/Abdominal: Soft, Tender (Mild diffuse tenderness lower mid abdomen and pelvis ). No: Guarding, Rebound Back Exam: No: CVA Tenderness (L), CVA Tenderness (R) Extremities: Normal Inspection. No: Pedal Edema, Leg Pain, Increased Warmth, Redness Neurological: Alert, Oriented Skin Exam: Diaphoretic (Mild) Course - Vital Signs Last Recorded V/S: Last Vital Signs Temp 101.2 F H 12/07/17 03:22 Pulse 145 H 12/06/17 21:31 Resp 30 H 12/07/17 00:45 BP 96/52 L 12/07/17 00:45 Pulse Ox 96 12/07/17 00:45 - Orders/Labs/Meds Orders: Active Orders 24 hr Category Date Time Status Urinary Catheter Insertion [Insert Urinary Catheter] [ Care 12/06/17 22:00 Ordered OM.PC] Q24H Pelvis Non OB Comp [US] Stat Exams 12/06/17 22:11 Taken CULTURE BLOOD [BC] Stat Lab 12/06/17 22:05 Received CULTURE BLOOD [BC] Stat Lab 12/06/17 22:20 Received Sodium Chloride 0.9% [Saline Flush] Med 12/06/17 21:44 Active 10 ml FLUSH ASDIRECTED PRN Peripheral IV Insertion Adult [OM.PC] Stat Oth 12/06/17 21:45 Ordered Medication Orders Acetaminophen (Tylenol) 650 mg PO Q4H PRN PRN Reason: Fever Greater Than 101 Last Admin: 12/07/17 03:22 Dose: 650 mg Lactated Ringer's (Ringers, Lactated) 1,000 mls @ 150 mls/hr IV ASDIRECTED [facility]AD[facility] Stop: 12/07/17 06:00 Last Admin: 12/07/17 00:58 Dose: 150 mls/hr Piperacillin Sod/Tazobactam (Sod 4.5 gm/ Sodium Chloride) 100 mls @ 25 mls/hr IV Q8H [facility] Dextrose/Sodium Chloride (Dextrose 5%-1/2 Ns) 1,000 mls @ 150 mls/hr IV ASDIRECTED [facility]AD[facility] Sodium Chloride (Saline Flush) 10 ml FLUSH ASDIRECTED PRN PRN Reason: Keep Vein Open Last Admin: 12/06/17 22:04 Dose: 10 ml Labs: Laboratory Tests 12/06/17 12/06/17 12/06/17 Range/Units 21:45 21:45 21:45 WBC 8.60 (3.98-10.04) K/mm3 RBC 2.99 L (3.98-5.22) M/mm3 Hgb 9.3 L (11.2-15.7) gm/L Hct 28.1 L (34.1-44.9) % MCV 94.0 (79.4-94.8) fl MCH 31.1 (25.6-32.2) pg MCHC 33.1 (32.2-35.5) g/dl RDW Std Deviation 43.7 (36.4-46.3) fL Plt Count 280 (182-369) K/mm3 MPV 9.1 L (9.4-12.3) fl Neutrophils % (Manual) 77 H (40-60) % Band Neutrophils % 3 (0-10) % Lymphocytes % (Manual) 17 L (20-40) % Atypical Lymphs % 0 % Monocytes % (Manual) 3 (2-10) % Eosinophils % (Manual) 0 L (0.7-5.8) % Basophils % (Manual) 0 L (0.1-1.2) Platelet Estimate Adequate RBC Morph Comment Normal Sodium 136 (136-145) mEq/L Potassium 3.2 L (3.5-5.1) mEq/L Chloride 103 (98-107) mEq/L Carbon Dioxide 22 (21-32) mEq/L Anion Gap 14.2 (5-15) BUN 9 (7-18) mg/dL Creatinine 1.0 (0.55-1.02) mg/dL Est Cr Clr Drug Dosing 74.91 mL/min Estimated GFR (MDRD) > 60 (>60) mL/min BUN/Creatinine Ratio 9.0 L (14-18) Glucose 99 (74-106) mg/dL Lactic Acid (0.4-2.0) mmol/L Calcium 8.4 L (8.5-10.1) mg/dL Total Bilirubin 0.6 (0.2-1.0) mg/dL AST 20 (15-37) U/L ALT 20 (14-59) U/L Alkaline Phosphatase 225 H (46-116) U/L C-Reactive Protein 15.7 H* (<1.0) mg/dL Total Protein 6.3 L (6.4-8.2) g/dl Albumin 2.2 L (3.4-5.0) g/dl Globulin 4.1 gm/dL Albumin/Globulin Ratio 0.5 L (1-2) Urine Color (Yellow) Urine Appearance (Clear) Urine pH (5.0-8.0) Ur Specific [place] (1.005-1.030) Urine Protein (Negative) Urine Glucose (UA) (Negative) Urine Ketones (Negative) Urine Occult Blood (Negative) Urine Nitrite (Negative) Urine Bilirubin (Negative) Urine Urobilinogen (0.2-1.0) Ur Leukocyte Esterase (Negative) 12/06/17 12/06/17 Range/Units 21:45 22:48 WBC (3.98-10.04) K/mm3 RBC (3.98-5.22) M/mm3 Hgb (11.2-15.7) gm/L Hct (34.1-44.9) % MCV (79.4-94.8) fl MCH (25.6-32.2) pg MCHC (32.2-35.5) g/dl RDW Std Deviation (36.4-46.3) fL Plt Count (182-369) K/mm3 MPV (9.4-12.3) fl Neutrophils % (Manual) (40-60) % Band Neutrophils % (0-10) % Lymphocytes % (Manual) (20-40) % Atypical Lymphs % % Monocytes % (Manual) (2-10) % Eosinophils % (Manual) (0.7-5.8) % Basophils % (Manual) (0.1-1.2) Platelet Estimate RBC Morph Comment Sodium (136-145) mEq/L Potassium (3.5-5.1) mEq/L Chloride (98-107) mEq/L Carbon Dioxide (21-32) mEq/L Anion Gap (5-15) BUN (7-18) mg/dL Creatinine (0.55-1.02) mg/dL Est Cr Clr Drug Dosing mL/min Estimated GFR (MDRD) (>60) mL/min BUN/Creatinine Ratio (14-18) Glucose (74-106) mg/dL Lactic Acid 1.2 (0.4-2.0) mmol/L Calcium (8.5-10.1) mg/dL Total Bilirubin (0.2-1.0) mg/dL AST (15-37) U/L ALT (14-59) U/L Alkaline Phosphatase (46-116) U/L C-Reactive Protein (<1.0) mg/dL Total Protein (6.4-8.2) g/dl Albumin (3.4-5.0) g/dl Globulin gm/dL Albumin/Globulin Ratio (1-2) Urine Color Yellow (Yellow) Urine Appearance Clear (Clear) Urine pH 6.5 (5.0-8.0) Ur Specific [place] 1.020 (1.005-1.030) Urine Protein Negative (Negative) Urine Glucose (UA) Negative (Negative) Urine Ketones Trace H (Negative) Urine Occult Blood Negative (Negative) Urine Nitrite Negative (Negative) Urine Bilirubin Negative (Negative) Urine Urobilinogen 1.0 (0.2-1.0) Ur Leukocyte Esterase Negative (Negative) Meds: Medications Generic Name Dose Route Start Last Admin Trade Name Freq PRN Reason Stop Dose Admin Acetaminophen 650 mg 12/06/17 23:50 12/07/17 03:22 Tylenol PO 650 mg Q4H PRN Administration Fever Greater Than 101 Lactated Ringer's 1,000 mls @ 150 mls/hr 12/06/17 23:45 12/07/17 00:58 Ringers, Lactated IV 12/07/17 06:00 150 mls/hr ASDIRECTED [facility]AD[facility] Administration Piperacillin Sod/Tazobactam 100 mls @ 25 mls/hr 12/08/17 06:00 Sod 4.5 gm/ Sodium Chloride IV Q8H [facility] Dextrose/Sodium Chloride 1,000 mls @ 150 mls/hr 12/07/17 06:00 Dextrose 5%-1/2 Ns IV ASDIRECTED [facility]AD[facility] Sodium Chloride 10 ml 12/06/17 21:44 12/06/17 22:04 Saline Flush FLUSH 10 ml ASDIRECTED PRN Administration Keep Vein Open Discontinued Medications Generic Name Dose Route Start Last Admin Trade Name Mike PRN Reason Stop Dose Admin Acetaminophen 975 mg 12/06/17 21:58 12/06/17 22:03 Tylenol PO 12/06/17 21:59 975 mg NOW ONE Administration Hydromorphone HCl 0.5 mg 12/06/17 23:37 12/07/17 00:25 Dilaudid IVPUSH 12/06/17 23:38 0.25 mg ONETIME ONE Administration Sodium Chloride 1,000 mls @ 999 mls/hr 12/06/17 21:45 12/06/17 21:50 Normal Saline IV 999 mls/hr ONETIME [facility] Administration Piperacillin Sod/Tazobactam 100 mls @ 200 mls/hr 12/06/17 22:05 12/06/17 22: 38 Sod 4.5 gm/ Sodium Chloride IV 12/06/17 22:34 200 mls/hr ONETIME ONE Administration Sodium Chloride Confirm 12/06/17 23:08 12/06/17 23:13 Normal Saline Administered 12/06/17 23:09 Not Given Dose 1,000 mls @ as directed .ROUTE .STK-MED ONE Sodium Chloride 1,000 mls @ 999 mls/hr 12/06/17 23:13 12/06/17 23:13 Normal Saline IV 12/07/17 00:13 999 mls/hr ONETIME ONE Administration - Re-Assessments/Exams Free Text/Narrative Re-Assessment/Exam: 12/07/17 03:41 We did initially treat liter normal saline wide open and follow that up with a second liter. Pelvic ultrasound was done. Labs did come back as documented white blood count about 8600, C-reactive protein 15. Lactate was 1.2. Blood cultures 2 were obtained. I did discuss this early on with Dr. Liz her OB adjunct spanish instructor did come in to see her, admitted for further treatment with plan to take to surgery once antibiotics have had a chance to get working for her. IV Zosyn 4.5 g IV was started early on as well as soon as blood cultures were obtained. Departure - Departure Time of Disposition: 23:15 Disposition: Admitted As Inpatient 64 Clinical Impression: Endometritis, Retained products of conception - Discharge Information ED Communication - Discussed Case With (1) Discussed Case With (1): Admitting Provider (Dr Liz, decision to admit at about 23;12) - My Orders Last 24 Hours: My Active Orders 12/06/17 21:44 Sodium Chloride 0.9% [Saline Flush] 10 ml FLUSH ASDIRECTED PRN 12/06/17 21:45 Peripheral IV Insertion Adult [OM.PC] Stat 12/06/17 22:00 Urinary Catheter Insertion [Insert Urinary Catheter] [OM.PC] Q24H 12/06/17 22:05 CULTURE BLOOD [BC] Stat 12/06/17 22:11 Pelvis Non OB Comp [US] Stat 12/06/17 22:20 CULTURE BLOOD [BC] Stat - Assessment/Plan Last 24 Hours: My Active Orders 12/06/17 21:44 Sodium Chloride 0.9% [Saline Flush] 10 ml FLUSH ASDIRECTED PRN 12/06/17 21:45 Peripheral IV Insertion Adult [OM.PC] Stat 12/06/17 22:00 Urinary Catheter Insertion [Insert Urinary Catheter] [OM.PC] Q24H 12/06/17 22:05 CULTURE BLOOD [BC] Stat 12/06/17 22:11 Pelvis Non OB Comp [US] Stat 12/06/17 22:20 CULTURE BLOOD [BC] Stat
[2017-12-06] MEDS ORDERED: Sodium Chloride 0.9% 1,000 ML ONE (23:08)
[2017-12-06] MEDS ORDERED: Sodium Chloride 0.9% 1,000 ML IV ONE (23:13)
--- NOTE | 2017-12-06 23:44 | PCM.HP ---
H&P History of Present Illness - General Date of Service: 12/06/17 Admit Problem/Dx: 1. endomyometritis 2.Retained placenta Source of Information: Patient History Limitations: Reports: No Limitations - History of Present Illness Initial Comments - Free Text/Narative: Joanna is a 22-year-old 1 now para 1001 white female who is admitted from the emergency room with the diagnosis of endomyometritis and retained products of conception/placenta. She delivered on 12/02/2017 having had a normal labor and a normal delivery. The delivery of the placenta was delayed and patient was treated with Pitocin, Methergine with no significant signs of placental delivery. He was then taken to the operating room and found to have what appeared to be a circular band of uterine muscle at the lower uterine segment. This appeared to initially keeps the placenta from delivering. Patient underwent evacuation of the placenta and a large portion of it was removed. It was felt to be completely evacuated with suction and sharp curettage. Patient was treated with antibiotics consisting of Ancef 2 g IV preop. After surgery patient bleeding minimized and patient had a normal course. She is nursing without problems. Her milk has come in and her breasts are engorged. She seen in the emergency department tonight and found to be febrile with some abdominal discomfort. She last ate this evening at around 6 to 7:00. She's had oral fluids in the form of water and juice up until the time she was seen in the ED. In the emergency room her temperature is 102.8. Laboratory testing showed a white blood count of 8.6, hemoglobin 9.3, hematocrit 28.1 and platelets 280. Her C-reactive protein is elevated at 15.7. Her comprehensive metabolic profile shows a potassium 3.2 a sodium 136. Her CO2 is 22 and her chloride is 103. Lactic acid is 1.2. Catheterized urinalysis is unremarkable. Findings are consistent with a endomyometritis and retained placenta. Transabdominal ultrasound is performed showed uterus which is approximately 14 cm in length by 11 cm in width by 7 cm in AP dimension. Within the endometrial cavity is echogenic tissue most probably consistent with retained placenta. laboratory testing: Laboratory testing showed her blood type to be O+ with a negative antibody screen. Initial labs showed a hemoglobin of 14.2 and a platelet count of 272,000. She is rubella immune. RPR is nonreactive. Urine culture was unremarkable. Hepatitis B surface antigen and HIV assays were both negative. Chlamydia and gonorrhea both negative. Second trimester labs showed a hemoglobin of 12.6 and a platelet count of 272,000. One hour glucose tolerance test was normal at 115. Group B strep screen was done and found to be negative. She received TDAP vaccine on September 28, 2017. Allergies: None Medications: 1. vitamin 1 by mouth daily 2. Colace 100 mg oral capsule twice daily as needed for constipation 3. Ondansetron HCL 4 mg oral tablet taken by mouth every 4 hours PRN for nausea 4. Dermoplast spray to perineum. 5. Tucks wipes 6. Ibuprofen when necessary Past Medical History: 1. Exercise induced asthma; infrequent inhaler use as needed 2. Retained sent after delivery on 12/02/2017 Past Surgical History: 1. Tonsillectomy 2014 2. Evacuation of placenta under anesthesia 12/02/2017 Family History: Mother is alive with hypertension. She had gestational diabetes mellitus in . Dad is alive with AODM. Adopted. One brother alive and well. Two sisters alive. Maternal grandmother alive with AODM and hypertension. Maternal grandfather alive with a history of CVA, DVT, aneurism, and hypertension. No bleeding, other problems, or anesthesia concerns in family. Social History: Patient is in a relationship with the baby's father, Ari. They live in [place]. She does not use any significant amount of alcohol, drugs, or tobacco but does report some alcohol use early in the . Review of systems: In general patient is had some febrile episodes with chills. She is oriented 3 and otherwise is in good spirits. Skin: is at times diaphoretic Cardiovascular: No chest pain or exercise intolerance. Respiratory: No shortness of breath or infectious symptoms Breasts: Engorged secondary to milk coming in with nursing. GI: Negative. She last ate this evening between 6 and 7 PM : Signs systems as per history of present illness Neurological: Negative Musculoskeletal: Negative Physical exam: General patient is well-developed, well-nourished, pleasant female who seems to be somewhat diaphoretic at time of exam. She is alert and oriented 3. Skin is warm and moist HEENT, neck and back within normal limits Lungs are clear with good breath sounds in all lung napoles. Cardiovascular exam shows regular and rhythm. Breasts are engorged. Abdomen is obese, soft, uterus is approximately 14-15 week size. Is tender to touch and patient has just finished her ultrasound which caused her some discomfort and cramping. Genital exam is deferred and will be done under anesthesia. Extremities show trace edema bilateral lower extremities Neurological exam grossly within normal limits. - Related Data Allergies/Adverse Reactions: Allergies Allergy/AdvReac Type Severity Reaction Status Date / Time No Known Allergies Allergy Verified 12/01/17 12:39 Home Medications: Home Meds Vits #93/Iron Fum/FA [ Formula Tablet] 1 each PO DAILY [History] Acetaminophen [Tylenol] 650 mg PO Q4H PRN tablet 12/03/17 [Rx] Ibuprofen [Motrin] 600 mg PO Q4H PRN tablet 12/03/17 [Rx] Past Medical History Cardiovascular History: Reports: None Respiratory History: Reports: Asthma (exercise induced) [employer] History: Reports: - Past Surgical History HEENT Surgical History: Reports: Tonsillectomy Social & Family History - Family History Family Medical History: Noncontributory H&P Review of Systems - Review of Systems: Review Of Systems: See Below Exam - Exam Exam: See Below - Vital Signs Vital Signs: Last Vital Signs Temp 39.4 C H 12/06/17 22:03 Pulse 145 H 12/06/17 21:31 Resp 16 12/06/17 21:31 BP 114/55 L 12/06/17 21:31 Pulse Ox 96 12/06/17 21:31 Weight: 103.873 kg - Patient Data Lab Results Last 24 hrs: Laboratory Results - last 24 hr 12/06/17 12/06/17 12/06/17 Range/Units 21:45 21:45 21:45 WBC 8.60 (3.98-10.04) K/mm3 RBC 2.99 L (3.98-5.22) M/mm3 Hgb 9.3 L (11.2-15.7) gm/L Hct 28.1 L (34.1-44.9) % MCV 94.0 (79.4-94.8) fl MCH 31.1 (25.6-32.2) pg MCHC 33.1 (32.2-35.5) g/dl RDW Std Deviation 43.7 (36.4-46.3) fL Plt Count 280 (182-369) K/mm3 MPV 9.1 L (9.4-12.3) fl Neutrophils % (Manual) 77 H (40-60) % Band Neutrophils % 3 (0-10) % Lymphocytes % (Manual) 17 L (20-40) % Atypical Lymphs % 0 % Monocytes % (Manual) 3 (2-10) % Eosinophils % (Manual) 0 L (0.7-5.8) % Basophils % (Manual) 0 L (0.1-1.2) Platelet Estimate Adequate RBC Morph Comment Normal Sodium 136 (136-145) mEq/L Potassium 3.2 L (3.5-5.1) mEq/L Chloride 103 (98-107) mEq/L Carbon Dioxide 22 (21-32) mEq/L Anion Gap 14.2 (5-15) BUN 9 (7-18) mg/dL Creatinine 1.0 (0.55-1.02) mg/dL Est Cr Clr Drug Dosing 74.91 mL/min Estimated GFR (MDRD) > 60 (>60) mL/min BUN/Creatinine Ratio 9.0 L (14-18) Glucose 99 (74-106) mg/dL Lactic Acid (0.4-2.0) mmol/L Calcium 8.4 L (8.5-10.1) mg/dL Total Bilirubin 0.6 (0.2-1.0) mg/dL AST 20 (15-37) U/L ALT 20 (14-59) U/L Alkaline Phosphatase 225 H (46-116) U/L C-Reactive Protein 15.7 H* (<1.0) mg/dL Total Protein 6.3 L (6.4-8.2) g/dl Albumin 2.2 L (3.4-5.0) g/dl Globulin 4.1 gm/dL Albumin/Globulin Ratio 0.5 L (1-2) Urine Color (Yellow) Urine Appearance (Clear) Urine pH (5.0-8.0) Ur Specific [place] (1.005-1.030) Urine Protein (Negative) Urine Glucose (UA) (Negative) Urine Ketones (Negative) Urine Occult Blood (Negative) Urine Nitrite (Negative) Urine Bilirubin (Negative) Urine Urobilinogen (0.2-1.0) Ur Leukocyte Esterase (Negative) 12/06/17 12/06/17 Range/Units 21:45 22:48 WBC (3.98-10.04) K/mm3 RBC (3.98-5.22) M/mm3 Hgb (11.2-15.7) gm/L Hct (34.1-44.9) % MCV (79.4-94.8) fl MCH (25.6-32.2) pg MCHC (32.2-35.5) g/dl RDW Std Deviation (36.4-46.3) fL Plt Count (182-369) K/mm3 MPV (9.4-12.3) fl Neutrophils % (Manual) (40-60) % Band Neutrophils % (0-10) % Lymphocytes % (Manual) (20-40) % Atypical Lymphs % % Monocytes % (Manual) (2-10) % Eosinophils % (Manual) (0.7-5.8) % Basophils % (Manual) (0.1-1.2) Platelet Estimate RBC Morph Comment Sodium (136-145) mEq/L Potassium (3.5-5.1) mEq/L Chloride (98-107) mEq/L Carbon Dioxide (21-32) mEq/L Anion Gap (5-15) BUN (7-18) mg/dL Creatinine (0.55-1.02) mg/dL Est Cr Clr Drug Dosing mL/min Estimated GFR (MDRD) (>60) mL/min BUN/Creatinine Ratio (14-18) Glucose (74-106) mg/dL Lactic Acid 1.2 (0.4-2.0) mmol/L Calcium (8.5-10.1) mg/dL Total Bilirubin (0.2-1.0) mg/dL AST (15-37) U/L ALT (14-59) U/L Alkaline Phosphatase (46-116) U/L C-Reactive Protein (<1.0) mg/dL Total Protein (6.4-8.2) g/dl Albumin (3.4-5.0) g/dl Globulin gm/dL Albumin/Globulin Ratio (1-2) Urine Color Yellow (Yellow) Urine Appearance Clear (Clear) Urine pH 6.5 (5.0-8.0) Ur Specific [place] 1.020 (1.005-1.030) Urine Protein Negative (Negative) Urine Glucose (UA) Negative (Negative) Urine Ketones Trace H (Negative) Urine Occult Blood Negative (Negative) Urine Nitrite Negative (Negative) Urine Bilirubin Negative (Negative) Urine Urobilinogen 1.0 (0.2-1.0) Ur Leukocyte Esterase Negative (Negative) Result Diagrams: 12/06/17 21:45 12/06/17 21:45 Problem List Initiated/Reviewed/Updated: Yes Orders Last 24hrs: Active Orders 24 hr Category Date Time Status Peripheral IV Care [RC] . DIRECTED Care 12/06/17 21:45 Active Pelvis Non OB Comp [US] Stat Exams 12/06/17 22:11 Taken CULTURE BLOOD [BC] Stat Lab 12/06/17 22:05 Received CULTURE BLOOD [BC] Stat Lab 12/06/17 22:20 Received Sodium Chloride 0.9% [Normal Saline] 1,000 ml Med 12/06/17 21:45 Active IV ONETIME Sodium Chloride 0.9% [Normal Saline] 1,000 ml Med 12/06/17 23:13 Active IV ONETIME Sodium Chloride 0.9% [Saline Flush] Med 12/06/17 21:44 Active 10 ml FLUSH ASDIRECTED PRN Peripheral IV Insertion Adult [OM.PC] Stat Oth 12/06/17 21:45 Ordered Medication Orders Sodium Chloride (Normal Saline) 1,000 mls @ 999 mls/hr IV ONETIME [facility] Last Admin: 12/06/17 21:50 Dose: 999 mls/hr Sodium Chloride (Normal Saline) 1,000 mls @ 999 mls/hr IV ONETIME ONE Stop: 12/07/17 00:13 Last Admin: 12/06/17 23:13 Dose: 999 mls/hr Sodium Chloride (Saline Flush) 10 ml FLUSH ASDIRECTED PRN PRN Reason: Keep Vein Open Last Admin: 12/06/17 22:04 Dose: 10 ml Assessment/Plan Comment:: 1. Endomyometritis with retained placenta per ultrasound-now day 4- status post evacuation of placenta after delivery on 12/02/2017 2. Generally healthy female 3. Patient is breast-feeding 4. Hemoglobin 9.3-essentially unchanged from discharge. Anemia secondary to and loss after delivery 5. Circular muscular band-lower uterine segment Plan: 1. Zosyn 3.375 g IV every 12 hours 2. IV fluid hydration initially with normal saline 2 L then D5 LR at 150 mL an hour thereafter 3. Tylenol 650 mg orally every 4 hours when necessary for temperature greater than 101 4. Consent for dilation and suction curettage-the procedure, risks, benefits, potential complications and need for further surgery discussed with patient. She wishes to proceed 5. Nothing by mouth and then Tylenol therapy 6. SCDs prior to surgery 7. Schedule surgery for approximately 0800 hours
[2017-12-06] MEDS ORDERED: Lactated Ringers 1,000 ML IV SCH (23:45)
[2017-12-06] MEDS: HYDROmorphone 0.5 MG/0.5 ML SYRINGE IVPUSH ONE (23:47)
[2017-12-06] MEDS ORDERED: Acetaminophen 325 MG Tab PO PRN (23:50)
[2017-12-07] MEDS: HYDROmorphone 0.5 MG/0.5 ML SYRINGE IVPUSH ONE (00:25)
[2017-12-07] MEDS ORDERED: Dextrose 5%-0.45% NaCl 1,000 ML IV SCH (06:00)
[2017-12-07] MEDS ORDERED: Piperacillin/Tazobactam 4.5 GM in Sodium Chloride 0.9% 100 ML IV SCH (06:10)
[2017-12-07] MEDS ORDERED: Rocuronium 50 MG/5 ML Vial ONE (07:29)
[2017-12-07] MEDS ORDERED: fentaNYL 100 MCG/2 ML SDV ONE (07:29)
[2017-12-07] MEDS ORDERED: Propofol 200 MG/20 ML SDV ONE (07:29)
[2017-12-07] MEDS ORDERED: Ondansetron 4 MG/2 ML SDV ONE (07:29)
[2017-12-07] MEDS ORDERED: Lidocaine 1% 4 ML ONE (07:30)
[2017-12-07] MEDS ORDERED: Midazolam 1 MG/ML 2 ML SDV ONE (07:30)
[2017-12-07] MEDS ORDERED: Methylergonovine 0.2 MG/1 ML Amp ONE (07:54)
[2017-12-07] MEDS ORDERED: Lactated Ringers 1,000 ML ONE ×3 (08:12→08:37)
[2017-12-07] MEDS ORDERED: Phenylephrine/Normal Saline 100 MCG/ML 10 ML Syringe ONE (08:36)
[2017-12-07] MEDS ORDERED: Albuterol 6.7 GM Inhaler INH PRN (08:50)
[2017-12-07] MEDS ORDERED: fentaNYL 100 MCG/2 ML SDV IVPUSH PRN (08:56)
--- NOTE | 2017-12-07 08:56 | PCM.OPNOTE ---
- General Post-Op/Procedure Note Date of Surgery/Procedure: 12/07/17 Operative Procedure(s): Dilation and suction curettage Findings: Uterus sounded to approximately 14 cm. Patient had a moderate amount of placental tissue still present within the endometrial cavity. Seemed very adherent to the fundus and the anterior endometrial wall. A circular band of tissue noted approximately group home down the endometrial cavity. Findings consistent with adherent placenta. Pre Op Diagnosis: 1. Endomyometritis. 2. Retained placenta Post-Op Diagnosis: Same Anesthesia Technique: General ET Tube Primary Surgeon: Wily Liz Secondary Surgeon: Christine Mitchell Anesthesia Provider: Vishal Rosales Fluid Replacement, Intraop: 2,000 EBL in mLs: 850 Complications: None Condition: Good Free Text/Narrative:: Intake & Output 12/06/17 12/07/17 12/07/17 22:59 06:59 14:59 Intake Total 463 Output Total 1225 Balance -762 Surgery duration: 38 minutes The patient was taken to the operating room and placed in a supine position operating table. She received Zosyn IV preoperatively for infection therapy. She had sequential compression stockings in place for DVT prophylaxis. After adequate general endotracheal anesthesia patient was placed in a dorsal lithotomy position. A weighted speculum was placed in the vagina. Cervix is found to be dilated to approximately 2-3 centimeters. Uterus was sounded to approximately 14 cm. It was found to be anterior and mid position. An 14 mm suction curette was then introduced in routine fashion the endometrial cavity was evacuated. Moderate amount tissue was obtained. Findings consistent with products of conception/placenta. A large sharp curet was introduced and very careful fashion the endometrial cavity was curetted. It was be clear of any further tissue. The suction curet was then reintroduced and small and blood was removed. No further tissue was removed. The tissue was very adherent with most of the tissue adhering to the anterior and fundal portion of the uterus. The ring forceps used to stabilize the anterior lip the cervix was removed. Blood was removed from the vagina with a stick sponge and the weighted speculum was removed from the vagina. The patient was awakened from general endotracheal anesthesia. The patient was discharged from the operating room in good condition.
[2017-12-07] MEDS ORDERED: Acetaminophen/oxyCODONE 325-5 MG Tab PO PRN (08:57)
[2017-12-07] MEDS ORDERED: Ondansetron 4 MG/2 ML SDV IVPUSH PRN (08:57)
--- NOTE | 2017-12-07 08:59 | PCM.POSTAN ---
POST ANESTHESIA ASSESSMENT - MENTAL STATUS Mental Status: Alert, Oriented - VITAL SIGNS Pulse Rate: 113 SaO2: 93 Resp Rate: 16 Blood Pressure: 79/55 Temperature: 97.4 C - RESPIRATORY Respiratory Status: Respiratory Rate WNL, Airway Patent, O2 Saturation Stable, Supplemental Oxygen - CARDIOVASCULAR CV Status: Elevated Pulse Rate, Low Blood Pressure - GASTROINTESTINAL GI Status: No Symptoms - PAIN Pain Score: 0 - POST OP HYDRATION Hydration Status: Hypovolemic - OBSERVATIONS Free Text/Narrative:: no anesthesia complications noted
[2017-12-07] MEDS ORDERED: Methylergonovine 0.2 MG Tab PO SCH (09:00)
--- NOTE | 2017-12-07 09:01 | PCM.PREANE ---
Preanesthetic Assessment - Anesthesia/Transfusion/Family Hx Anesthesia History: Prior Anesthesia Without Reaction Family History of Anesthesia Reaction: No Transfusion History: No Prior Transfusion(s) - Review of Systems General: Weakness, Fatigue, Malaise Pulmonary: No Symptoms Cardiovascular: Palpitations Gastrointestinal: No Symptoms Neurological: No Symptoms Other: Reports: None - Physical Assessment NPO Status Date: 12/06/17 NPO Status Time: 22:30 Pulse: 120 O2 Sat by Pulse Oximetry: 100 Respiratory Rate: 16 Blood Pressure: 93/72 Temperature: 97.4 C Vital Signs: Last Vital Signs Temp 97.4 C H 12/07/17 08:58 Pulse 113 H 12/07/17 08:58 Resp 16 12/07/17 08:58 BP 79/55 L 12/07/17 08:58 Pulse Ox 93 L 12/07/17 08:58 Height: 1.63 m Weight: 100.834 kg ASA Class: 2E Mental Status: Alert & Oriented x3 Airway Class: Mallampati = 2 Dentition: Reports: Normal Dentition Thyro-Mental Finger Breadths: 3 Mouth Opening Finger Breadths: 3 ROM/Head Extension: Full Lungs: Clear to Auscultation, Normal Respiratory Effort Cardiovascular: Regular Rhythm, No Murmurs, Tachycardia - Lab Values: Laboratory Last Values WBC 8.60 K/mm3 (3.98-10.04) 12/06/17 21:45 RBC 2.99 M/mm3 (3.98-5.22) L 12/06/17 21:45 Hgb 9.3 gm/L (11.2-15.7) L 12/06/17 21:45 Hct 28.1 % (34.1-44.9) L 12/06/17 21:45 MCV 94.0 fl (79.4-94.8) 12/06/17 21:45 MCH 31.1 pg (25.6-32.2) 12/06/17 21:45 MCHC 33.1 g/dl (32.2-35.5) 12/06/17 21:45 RDW Std Deviation 43.7 fL (36.4-46.3) 12/06/17 21:45 Plt Count 280 K/mm3 (182-369) 12/06/17 21:45 MPV 9.1 fl (9.4-12.3) L 09/17/18 21:45 Neutrophils % (Manual) 77 % (40-60) H 12/06/17 21:45 Band Neutrophils % 3 % (0-10) 12/06/17 21:45 Lymphocytes % (Manual) 17 % (20-40) L 12/06/17 21:45 Atypical Lymphs % 0 % 12/06/17 21:45 Monocytes % (Manual) 3 % (2-10) 12/06/17 21:45 Eosinophils % (Manual) 0 % (0.7-5.8) L 12/06/17 21:45 Basophils % (Manual) 0 (0.1-1.2) L 12/06/17 21:45 Platelet Estimate Adequate 12/06/17 21:45 RBC Morph Comment Normal 12/06/17 21:45 Sodium 136 mEq/L (136-145) 12/06/17 21:45 Potassium 3.2 mEq/L (3.5-5.1) L 12/06/17 21:45 Chloride 103 mEq/L (98-107) 12/06/17 21:45 Carbon Dioxide 22 mEq/L (21-32) 12/06/17 21:45 Anion Gap 14.2 (5-15) 12/06/17 21:45 BUN 9 mg/dL (7-18) 12/06/17 21:45 Creatinine 1.0 mg/dL (0.55-1.02) 12/06/17 21:45 Est Cr Clr Drug Dosing 74.91 mL/min 12/06/17 21:45 Estimated GFR (MDRD) > 60 mL/min (>60) 12/06/17 21:45 BUN/Creatinine Ratio 9.0 (14-18) L 12/06/17 21:45 Glucose 99 mg/dL (74-106) 12/06/17 21:45 Lactic Acid 1.2 mmol/L (0.4-2.0) 12/06/17 21:45 Calcium 8.4 mg/dL (8.5-10.1) L 12/06/17 21:45 Total Bilirubin 0.6 mg/dL (0.2-1.0) 12/06/17 21:45 AST 20 U/L (15-37) 12/06/17 21:45 ALT 20 U/L (14-59) 12/06/17 21:45 Alkaline Phosphatase 225 U/L (46-116) H 12/06/17 21:45 C-Reactive Protein 15.7 mg/dL (<1.0) H* 12/06/17 21:45 Total Protein 6.3 g/dl (6.4-8.2) L 12/06/17 21:45 Albumin 2.2 g/dl (3.4-5.0) L 12/06/17 21:45 Globulin 4.1 gm/dL 12/06/17 21:45 Albumin/Globulin Ratio 0.5 (1-2) L 12/06/17 21:45 Urine Color Yellow (Yellow) 12/06/17 22:48 Urine Appearance Clear (Clear) 12/06/17 22:48 Urine pH 6.5 (5.0-8.0) 12/06/17 22:48 Ur Specific [place] 1.020 (1.005-1.030) 12/06/17 22:48 Urine Protein Negative (Negative) 12/06/17 22:48 Urine Glucose (UA) Negative (Negative) 12/06/17 22:48 Urine Ketones Trace (Negative) H 12/06/17 22:48 Urine Occult Blood Negative (Negative) 12/06/17 22:48 Urine Nitrite Negative (Negative) 12/06/17 22:48 Urine Bilirubin Negative (Negative) 12/06/17 22:48 Urine Urobilinogen 1.0 (0.2-1.0) 12/06/17 22:48 Ur Leukocyte Esterase Negative (Negative) 12/06/17 22:48 - Allergies Allergies/Adverse Reactions: Allergies Allergy/AdvReac Type Severity Reaction Status Date / Time No Known Allergies Allergy Verified 12/07/17 01:04 - Blood Blood Available: Yes Product(s) Available: PRBC - Anesthesia Plan Pre-Op Medication Ordered: None - Acknowledgements Anesthesia Type Planned: General Anesthesia Pt an Appropriate Candidate for the Planned Anesthesia: Yes Alternatives and Risks of Anesthesia Discussed w Pt/Guardian: Yes Pt/Guardian Understands and Agrees with Anesthesia Plan: Yes Additional Comments: Emergency PreAnesthesia Questionnaire Cardiovascular History: Reports: None Respiratory History: Reports: Asthma (exercise induced) Genitourinary History: Reports: Other (See Below) Other Genitourinary History: bladder infections in past. [employer] History: Reports: - Past Surgical History HEENT Surgical History: Reports: Tonsillectomy - SUBSTANCE USE Smoking Status *Q: Former Smoker Recreational Drug Use History: No - HOME MEDS Home Medications: Home Meds Vits #93/Iron Fum/FA [ Formula Tablet] 1 each PO DAILY [History] Acetaminophen [Tylenol] 650 mg PO Q4H PRN tablet 12/03/17 [Rx] Ibuprofen [Motrin] 600 mg PO Q4H PRN tablet 12/03/17 [Rx] Albuterol [Proventil HFA] 1 puff INH Q6HR PRN 12/07/17 [History] - CURRENT (IN HOUSE) MEDS Current Meds: Current Medications Albuterol (Proventil Hfa) 1 gm INH Q6H PRN PRN Reason: Wheezing Fentanyl (Sublimaze) 50 mcg IVPUSH Q5M PRN PRN Reason: Pain Piperacillin Sod/Tazobactam (Sod 4.5 gm/ Sodium Chloride) 100 mls @ 25 mls/hr IV Q8H [facility] Methylergonovine Maleate (Methergine) 0.2 mg PO QID [facility] Ondansetron HCl (Zofran) 4 mg IVPUSH Q4H PRN PRN Reason: Nausea/Vomiting Oxycodone/Acetaminophen (Percocet 325-5 Mg) 2 tab PO Q4H PRN PRN Reason: Pain (moderate 4-6) Discontinued Medications Acetaminophen (Tylenol) 975 mg PO NOW ONE Stop: 12/06/17 21:59 Last Admin: 12/06/17 22:03 Dose: 975 mg Acetaminophen (Tylenol) 650 mg PO Q4H PRN PRN Reason: Fever Greater Than 101 Last Admin: 12/07/17 03:22 Dose: 650 mg Fentanyl (Sublimaze) Confirm Administered Dose 100 mcg .ROUTE .STK-MED ONE Stop: 12/07/17 07:30 Hydromorphone HCl (Dilaudid) 0.5 mg IVPUSH ONETIME ONE Stop: 12/06/17 23:38 Last Admin: 12/07/17 00:25 Dose: 0.25 mg Sodium Chloride (Normal Saline) 1,000 mls @ 999 mls/hr IV ONETIME [facility] Last Admin: 12/06/17 21:50 Dose: 999 mls/hr Piperacillin Sod/Tazobactam (Sod 4.5 gm/ Sodium Chloride) 100 mls @ 200 mls/hr IV ONETIME ONE Stop: 12/06/17 22:34 Last Admin: 12/06/17 22:38 Dose: 200 mls/hr Sodium Chloride (Normal Saline) Confirm Administered Dose 1,000 mls @ as directed .ROUTE .STK-MED ONE Stop: 12/06/17 23:09 Last Admin: 12/06/17 23:13 Dose: Not Given Sodium Chloride (Normal Saline) 1,000 mls @ 999 mls/hr IV ONETIME ONE Stop: 12/07/17 00:13 Last Admin: 12/06/17 23:13 Dose: 999 mls/hr Lactated Ringer's (Ringers, Lactated) 1,000 mls @ 150 mls/hr IV ASDIRECTED [facility] Stop: 12/07/17 06:00 Last Admin: 12/07/17 00:58 Dose: 150 mls/hr Piperacillin Sod/Tazobactam (Sod 4.5 gm/ Sodium Chloride) 100 mls @ 25 mls/hr IV Q8H [facility] Dextrose/Sodium Chloride (Dextrose 5%-1/2 Ns) 1,000 mls @ 150 mls/hr IV ASDIRECTED [facility] Last Admin: 12/07/17 06:05 Dose: 150 mls/hr Piperacillin Sod/Tazobactam (Sod 4.5 gm/ Sodium Chloride) 100 mls @ 25 mls/hr IV Q8H [facility] Last Admin: 12/07/17 06:10 Dose: 25 mls/hr Lidocaine HCl (Xylocaine-Mpf 1%) Confirm Administered Dose 4 mls @ as directed .ROUTE .STK-MED ONE Stop: 12/07/17 07:31 Lactated Ringer's (Ringers, Lactated) Confirm Administered Dose 1,000 mls @ as directed .ROUTE .STK-MED ONE Stop: 12/07/17 08:13 Lactated Ringer's (Ringers, Lactated) Confirm Administered Dose 1,000 mls @ as directed .ROUTE .STK-MED ONE Stop: 12/07/17 08:38 Lactated Ringer's (Ringers, Lactated) Confirm Administered Dose 1,000 mls @ as directed .ROUTE .STK-MED ONE Stop: 12/07/17 08:38 Methylergonovine Maleate (Methergine) Confirm Administered Dose 0.2 mg .ROUTE .STK-MED ONE Stop: 12/07/17 07:55 Midazolam HCl (Versed 1 Mg/Ml) Confirm Administered Dose 2 mg .ROUTE .STK-MED ONE Stop: 12/07/17 07:31 Ondansetron HCl (Zofran) Confirm Administered Dose 4 mg .ROUTE .STK-MED ONE Stop: 12/07/17 07:30 Phenylephrine HCl (Phenylephrine In Ns 100 Mcg/Ml) Confirm Administered Dose 1 mg .ROUTE .STK-MED ONE Stop: 12/07/17 08:37 Propofol (Diprivan 20 Ml) Confirm Administered Dose 200 mg .ROUTE .STK-MED ONE Stop: 12/07/17 07:30 Rocuronium [place] (Zemuron) Confirm Administered Dose 50 mg .ROUTE .STK-MED ONE Stop: 12/07/17 07:30 Sodium Chloride (Saline Flush) 10 ml FLUSH ASDIRECTED PRN PRN Reason: Keep Vein Open Last Admin: 12/06/17 22:04 Dose: 10 ml
[2017-12-07] MEDS ORDERED: Methylergonovine 0.2 MG/1 ML Amp IM SCH (09:45)
[2017-12-07] MEDS: Methylergonovine 0.2 MG/1 ML Amp IM SCH ×2 (13:52→20:29)
[2017-12-07] MEDS: Piperacillin/Tazobactam 4.5 GM in Sodium Chloride 0.9% 100 ML IV SCH ×2 (14:23→21:50)
[2017-12-07] MEDS: Acetaminophen 325 MG Tab PO PRN ×2 (17:25→21:50)
[2017-12-08] MEDS: Methylergonovine 0.2 MG/1 ML Amp IM SCH (01:06)
[2017-12-08] MEDS: Piperacillin/Tazobactam 4.5 GM in Sodium Chloride 0.9% 100 ML IV SCH ×3 (05:04→22:08)
[2017-12-08] MEDS ORDERED: Piperacillin/Tazobactam 4.5 GM in Sodium Chloride 0.9% 100 ML IV SCH (06:00)
[2017-12-08] MEDS: Acetaminophen 325 MG Tab PO PRN ×2 (07:44→16:05)
--- NOTE | 2017-12-08 08:30 | PCM48HPAN ---
Post Anesthesia Note - EVALUATION WITHIN 48HRS OF ANESTHETIC Vital Signs in Normal Range: Yes Patient Participated in Evaluation: Yes Respiratory Function Stable: Yes Airway Patent: Yes Cardiovascular Function Stable: Yes Hydration Status Stable: Yes Pain Control Satisfactory: Yes Nausea and Vomiting Control Satisfactory: Yes Mental Status Recovered: Yes - COMMENTS/OBSERVATIONS Free Text/Narrative:: Patient denied any post anesthetic complications
--- NOTE | 2017-12-08 08:40 | PCM.SN ---
- Free Text/Narrative Note: Joanna is a 22-year-old 1 now para 1001 white female who was seen in the emergency department the night of 12/06/17 and found to be febrile with some abdominal discomfort and a temperature of 102.8. Laboratory and U/S findings were consistent with a endomyometritis and retained placenta, and patient was admitted at that time. Patient underwent a dilation and suction curettage under anesthesia 12/07/17, and it is felt that at that time the remainder of the retained placenta was removed. Patient has been treated with Piperacillin/Tazobactam for infection. Following surgery, patient was given 2 units PRBCs for blood loss. History significant for 12/02/2017 having had a normal labor and a normal delivery. The delivery of the placenta was delayed and patient was treated with Pitocin, Methergine with no significant signs of placental delivery. She was then taken to the operating room and found to have what appeared to be a circular band of uterine muscle at the lower uterine segment. This appeared to initially keep the placenta from delivering. Patient underwent evacuation of the placenta and a large portion of it was removed. It was felt to be completely evacuated with suction and sharp curettage. Patient was treated with antibiotics consisting of Ancef 2 g IV preop. After surgery patient bleeding minimized and patient had a normal course. SUBJECTIVE Patient appears in good spirits with no complaints of fever/chills since D&C. Denies cough, chest pain, SOB, dyspnea, LE pain, excessive vaginal drainage/ discharge, COTTO, blurred/double vision. On exam, patient appears well, though with some obvious edema in face, hands, and LE (+1-2). Lungs were clear to auscultation, no M/R/G could be appreciated. Uterus is tender to palpation, however beginning to involute normally. Patient reports her biggest concern at this time is her hemorrhoids. OBJECTIVE Hgb: 8.9 g/L Hct: 26.9% VS T: 36.6 HR: 89 BP 119/79 RR: 16 O2: 92% RA ASSESSMENT Patient appears to be recovering well. Expect edema to be due to fluid infusions , and should resolve on its own within the next several days. Blood cultures were positive, waiting on final identification and sensitivity for antibiotic selection. Hgb remains low at 8.9, however patient denies symptomatic anemia. ROS and exam, VS and lab findings are all reassuring at this time. PLAN 1. Continue Pip-tazo for antibiotic therapy until sensitivity report available 2. Continue monitoring patient vitals, s/sx infection 3. Increase iron intake to support erythropoiesis 4. Consider discharge tomorrow once transitioned to PO antibiotics 5. Begin topical ointment for hemorrhoids
[2017-12-08] MEDS ORDERED: Hydrocortisone 1% Crm 30 GM Tube TOP PRN (11:43)
--- NOTE | 2017-12-08 11:43 | US ---
Pelvic ultrasound: Multiple real-time images were obtained transabdominally. Findings: Distended endometrial cavity is seen containing debris. This is most likely due to blood clot and retained products of conception. Difficult to exclude an area of placenta accreta anteriorly. Follow-up is recommended. No adnexal abnormalities are seen. Impression: 1. Blood clot and retained products of conception distending the endometrial cavity. Difficult to exclude an area of placenta accreta anteriorly. Continued follow-up is recommended a week after repeat Diagnostic code #5 I agree with preliminary report from [facility], finalized on 12/07/17, 12:28 AM Central Time
[2017-12-08] MEDS ORDERED: HYDROCORTISONE TOP PRN (17:11)
[2017-12-09] MEDS: Acetaminophen 325 MG Tab PO PRN ×2 (01:53→20:01)
[2017-12-09] MEDS: Piperacillin/Tazobactam 4.5 GM in Sodium Chloride 0.9% 100 ML IV SCH (05:33)
[2017-12-09] MEDS: Ampicillin 2 GM in Sodium Chloride 0.9% 100 ML IV SCH ×2 (13:32→20:01)
[2017-12-09] MEDS: Ferrous Sulfate 325 MG Tab PO SCH ×2 (14:04→20:01)
[2017-12-10] MEDS: Ampicillin 2 GM in Sodium Chloride 0.9% 100 ML IV SCH ×4 (02:08→20:47)
--- NOTE | 2017-12-10 05:22 | PCM.SN ---
- Free Text/Narrative Note: Patient doing very well yesterday and into today. She is on maintenance dose of IV antibiotics. She's been switched ampicillin as the strep faecalis which grew out of her blood cultures appears sensitive to ampicillin. She is ambulating well, hemoglobin has returned mildly decreased but patient clinically is doing well. She is now allowed to nurse again as she is on ampicillin which should be compatible with breast-feeding. She has been pumping during the last 2 days. Vital signs stable. Patient is now been afebrile for 72 hours. Lungs are clear with good breath sounds in all lung napoles. Cardiovascular exam shows regular rate and rhythm. Abdomen is soft, essentially nontender the exception of deep palpation. Legs are nontender without edema. Assessment: 1. Patient status post retained placenta, endomyometritis, positive blood culturesdoing well on antibiotics and status post evacuation of retained placenta 2. Breast-feeding going well. 3. Positive blood cultures showing strep faecalissensitive to ampicillin. She was switched to ampicillin IV was plan to do a total 5 day course of IV secondary to positive blood culture results. Plan: 1. Continue ampicillin until tomorrow and consider discharge on amoxicillin for another 7 days. 2. Support breast-feeding incision. 3. Analgesia as necessary.
[2017-12-10] MEDS: Ferrous Sulfate 325 MG Tab PO SCH ×2 (08:19→20:47)
[2017-12-11] MEDS: Ampicillin 2 GM in Sodium Chloride 0.9% 100 ML IV SCH ×2 (02:26→09:36)
--- NOTE | 2017-12-11 09:08 | PCM.PN ---
- General Info Date of Service: 12/11/17 Admission Dx/Problem (Free Text): 1. endomyometritis 2.Retained placenta Functional Status: Reports: Pain Controlled, Tolerating Diet, Ambulating, Urinating - Review of Systems General: Reports: No Symptoms HEENT: Reports: No Symptoms Pulmonary: Reports: No Symptoms Cardiovascular: Reports: No Symptoms Gastrointestinal: Reports: Abdominal Pain Genitourinary: Reports: Other (cramping, bleeding) Musculoskeletal: Reports: No Symptoms Skin: Reports: No Symptoms Neurological: Reports: No Symptoms Psychiatric: Reports: No Symptoms Systems Review Comment:: Patient states she is doing well. She is experiencing some mild intermittent cramping and light vaginal bleeding. She denies fever, chills, and any other symptoms. She would like to return home today. - Patient Data Vitals - Most Recent: Last Vital Signs Temp 97.7 F 12/11/17 08:11 Pulse 59 L 12/11/17 08:11 Resp 16 12/11/17 08:11 BP 113/71 12/11/17 08:11 Pulse Ox 97 12/11/17 08:11 Weight - Most Recent: 221 lb I&O - Last 24 Hours: Intake & Output 12/10/17 12/11/17 12/11/17 22:59 06:59 14:59 Intake Total 2040 1000 Balance 2040 1000 Von Results Last 24 Hours: Microbiology 12/06/17 22:20 Aerobic Blood Culture - Preliminary Blood NO GROWTH AFTER 4 DAYS Anaerobic Blood Culture - Final Enterococcus Faecalis 12/06/17 22:05 Aerobic Blood Culture - Final Blood Enterococcus Faecalis Anaerobic Blood Culture - Final Enterococcus Faecalis Med Orders - Current: Current Medications Acetaminophen (Tylenol) 650 mg PO Q4H PRN PRN Reason: Abdominal Pain Last Admin: 12/09/17 20:01 Dose: 650 mg Albuterol (Proventil Hfa) 0 gm INH Q6H PRN PRN Reason: Wheezing Ferrous Sulfate (Ferrous Sulfate) 325 mg PO BID [facility] Last Admin: 12/10/17 20:47 Dose: 325 mg Hydrocortisone (Hydrocortisone 1% Crm) 0 gm TOP ASDIRECTED PRN PRN Reason: Hemorrhoids Last Admin: 12/08/17 13:38 Dose: 1 tub Hydrocortisone (First-Hydrocortisone 10% Gel) 0 gm TOP TID PRN PRN Reason: Pain Ampicillin Sodium 2 gm/ Sodium (Chloride) 100 mls @ 200 mls/hr IV Q6H [facility] Last Admin: 12/11/17 02:26 Dose: 200 mls/hr Ondansetron HCl (Zofran) 4 mg IVPUSH Q4H PRN PRN Reason: Nausea/Vomiting Oxycodone/Acetaminophen (Percocet 325-5 Mg) 2 tab PO Q4H PRN PRN Reason: Pain (moderate 4-6) Discontinued Medications Acetaminophen (Tylenol) 975 mg PO NOW ONE Stop: 12/06/17 21:59 Last Admin: 12/06/17 22:03 Dose: 975 mg Acetaminophen (Tylenol) 650 mg PO Q4H PRN PRN Reason: Fever Greater Than 101 Last Admin: 12/07/17 03:22 Dose: 650 mg Fentanyl (Sublimaze) Confirm Administered Dose 100 mcg .ROUTE .STK-MED ONE Stop: 12/07/17 07:30 Fentanyl (Sublimaze) 50 mcg IVPUSH Q5M PRN PRN Reason: Pain Stop: 12/07/17 18:00 Hydromorphone HCl (Dilaudid) 0.5 mg IVPUSH ONETIME ONE Stop: 12/06/17 23:38 Last Admin: 12/07/17 00:25 Dose: 0.25 mg Sodium Chloride (Normal Saline) 1,000 mls @ 999 mls/hr IV ONETIME [facility] Last Admin: 12/06/17 21:50 Dose: 999 mls/hr Piperacillin Sod/Tazobactam (Sod 4.5 gm/ Sodium Chloride) 100 mls @ 200 mls/hr IV ONETIME ONE Stop: 12/06/17 22:34 Last Admin: 12/06/17 22:38 Dose: 200 mls/hr Sodium Chloride (Normal Saline) Confirm Administered Dose 1,000 mls @ as directed .ROUTE .STK-MED ONE Stop: 12/06/17 23:09 Last Admin: 12/06/17 23:13 Dose: Not Given Sodium Chloride (Normal Saline) 1,000 mls @ 999 mls/hr IV ONETIME ONE Stop: 12/07/17 00:13 Last Admin: 12/06/17 23:13 Dose: 999 mls/hr Lactated Ringer's (Ringers, Lactated) 1,000 mls @ 150 mls/hr IV ASDIRECTED [facility] Stop: 12/07/17 06:00 Last Admin: 12/07/17 00:58 Dose: 150 mls/hr Piperacillin Sod/Tazobactam (Sod 4.5 gm/ Sodium Chloride) 100 mls @ 25 mls/hr IV Q8H [facility] Dextrose/Sodium Chloride (Dextrose 5%-1/2 Ns) 1,000 mls @ 150 mls/hr IV ASDIRECTED [facility] Last Admin: 12/07/17 06:05 Dose: 150 mls/hr Piperacillin Sod/Tazobactam (Sod 4.5 gm/ Sodium Chloride) 100 mls @ 25 mls/hr IV Q8H [facility] Last Admin: 12/07/17 06:10 Dose: 25 mls/hr Lidocaine HCl (Xylocaine-Mpf 1%) Confirm Administered Dose 4 mls @ as directed .ROUTE .STK-MED ONE Stop: 12/07/17 07:31 Lactated Ringer's (Ringers, Lactated) Confirm Administered Dose 1,000 mls @ as directed .ROUTE .STK-MED ONE Stop: 12/07/17 08:13 Lactated Ringer's (Ringers, Lactated) Confirm Administered Dose 1,000 mls @ as directed .ROUTE .STK-MED ONE Stop: 12/07/17 08:38 Lactated Ringer's (Ringers, Lactated) Confirm Administered Dose 1,000 mls @ as directed .ROUTE .ST-MED ONE Stop: 12/07/17 08:38 Piperacillin Sod/Tazobactam (Sod 4.5 gm/ Sodium Chloride) 100 mls @ 25 mls/hr IV Q8H [facility] Last Admin: 12/09/17 05:33 Dose: 25 mls/hr Methylergonovine Maleate (Methergine) Confirm Administered Dose 0.2 mg .ROUTE .STK-MED ONE Stop: 12/07/17 07:55 Last Admin: 12/07/17 07:55 Dose: 0.2 mg Methylergonovine Maleate (Methergine) 0.2 mg PO QID [facility] Last Admin: 12/07/17 11:32 Dose: Not Given Methylergonovine Maleate (Methergine) 0.2 mg IM QID [facility] Stop: 12/07/17 21:01 Last Admin: 12/07/17 12:00 Dose: Not Given Methylergonovine Maleate (Methergine) 0.2 mg IM Q6H [facility] Stop: 12/08/17 02:01 Last Admin: 12/08/17 01:06 Dose: 0.2 mg Midazolam HCl (Versed 1 Mg/Ml) Confirm Administered Dose 2 mg .ROUTE .STK-MED ONE Stop: 12/07/17 07:31 Ondansetron HCl (Zofran) Confirm Administered Dose 4 mg .ROUTE .STK-MED ONE Stop: 12/07/17 07:30 Phenylephrine HCl (Phenylephrine In Ns 100 Mcg/Ml) Confirm Administered Dose 1 mg .ROUTE .STK-MED ONE Stop: 12/07/17 08:37 Propofol (Diprivan 20 Ml) Confirm Administered Dose 200 mg .ROUTE .STK-MED ONE Stop: 12/07/17 07:30 Rocuronium [place] (Zemuron) Confirm Administered Dose 50 mg .ROUTE .STK-MED ONE Stop: 12/07/17 07:30 Sodium Chloride (Saline Flush) 10 ml FLUSH ASDIRECTED PRN PRN Reason: Keep Vein Open Last Admin: 12/06/17 22:04 Dose: 10 ml - Exam Quality Assessment: DVT Prophylaxis General: Alert, Oriented, Cooperative, No Acute Distress HEENT: Pupils Equal, Pupils Reactive, EOMI, Mucous Membr. Moist/[place] Neck: Supple, Trachea Midline Lungs: Clear to Auscultation, Normal Respiratory Effort Cardiovascular: Regular Rate, Regular Rhythm GI/Abdominal Exam: Normal Bowel Sounds, Soft, Non-Tender (Female) Exam: Deferred Back Exam: Normal Inspection, Full Range of Motion Extremities: Normal Inspection, Normal Range of Motion, Non-Tender, No Pedal Edema Peripheral Pulses: 2+: Radial (L), Radial (R), Posterior Tibial (L), Posterior Tibial (R) Skin: Warm, Dry, Intact Neurological: No New Focal Deficit Psy/Mental Status: Alert, Normal Affect, Normal Mood Physical Findings Comments:: Patient appears comfortable and in no acute distress. She is pleasant and cooperative. No abnormalities are found upon exam. - Problem List & Annotations (1) Endometritis SNOMED Code(s): 36085456 Code(s): N71.9 - INFLAMMATORY DISEASE OF UTERUS, UNSPECIFIED Status: Acute Current Visit: Yes (2) Retained placenta SNOMED Code(s): 464154642 Code(s): O73.0 - RETAINED PLACENTA WITHOUT HEMORRHAGE Status: Acute Current Visit: No - Problem List Review Problem List Initiated/Reviewed/Updated: Yes - Assessment Assessment:: Patient is doing well and would like to go home today Hbg 8.7 and Hct 26.6 Fever has resolved - vital signs stable - Plan Plan:: Discharge today Continue antibiotics - send to [place] [facility], [place]. Dr. Lopez has examined the patient and reviewed the note.
[2017-12-11] MEDS: Ferrous Sulfate 325 MG Tab PO SCH (09:37)
== END 2017-12-11 11:15 | disposition home or self-care (01) | DRG 769 ==
LOC: JD.ED 21:14 → JD.MS 23:50 → OBSVTOIN 12-07 08:38 → JD.ICU 12-07 08:39 → JD.MS 12-09 21:11
PROVIDERS: ADMIT Obstetrics & Gynecology; ATTEND Obstetrics & Gynecology
PROC: 10D17ZZ Extraction of Products of Conception, Retained, Via Natural or Artificial Opening (ICD-10-PCS; principal; 2017-12-07)
PROC: 30233N1 Transfusion of Nonautologous Red Blood Cells into Peripheral Vein, Percutaneous Approach (ICD-10-PCS; 2017-12-07)
DX: O86.12 Endometritis following delivery (principal); R78.81 Bacteremia; O87.2 Hemorrhoids in the puerperium; O73.0 Retained placenta without hemorrhage; O99.53 Diseases of the respiratory system complicating the puerperium; J45.990 Exercise induced bronchospasm; Z79.899 Other long term (current) drug therapy; B95.4 Other streptococcus as the cause of diseases classified elsewhere; O90.89 Other complications of the puerperium, not elsewhere classified; Z87.891 Personal history of nicotine dependence; Z87.440 Personal history of urinary (tract) infections
CPT/HCPCS: 00940; 36415; 36430; 76856; 76856-26; 80053; 81003; 83605; 85007; 85025; 85027; 86140; 86850; 86900; 86901; 86922; 87040; 87077; 87186; 96361; 96365; 96366; 96375; 96376; 99285; 99285-25; A9270-GY; G0378; J0290; J1170; J2001; J2210; J2250; J2370; J2405; J2543; J2704; J3010; J7030; J7040; J7042; J7050; J7120; P9016

== ENCOUNTER 2022-04-02 03:46 | Emergency (ER) | payer BC, OTHER ==
[2022-04-02] MEDS ORDERED: Sodium Chloride 0.9% 1,000 ML IV SCH (04:00)
[2022-04-02 04:41] LABS: ESTIMATED GFR 121 mL/min (>60)
[2022-04-02] MEDS ORDERED: Sodium Chloride 0.9% 2,000 ML IV ONE (05:18)
[2022-04-02] MEDS ORDERED: cefTRIAXone 1 GM in Sodium Chloride 0.9% 100 ML IV ONE (07:07)
== END 2022-04-02 08:42 | disposition home or self-care (01) ==
LOC: JD.ED 03:46
DX: O20.0 Threatened abortion (principal); O99.891 Other specified diseases and conditions complicating pregnancy; R82.71 Bacteriuria; Z3A.12 12 weeks gestation of pregnancy
CPT/HCPCS: 36415; 76815; 80053; 81001; 84702; 85007; 85027; 85610; 87086; 96361; 96365; 99284; J0696; J7030

== ENCOUNTER 2022-09-24 07:21 | Inpatient (IN) | payer BC ==
[2022-09-24] MEDS ORDERED: Ondansetron 4 MG/2 ML SDV IVPUSH PRN (07:35)
[2022-09-24] MEDS ORDERED: Nalbuphine 10 MG/0.5 ML Syringe IVPUSH PRN (07:35)
[2022-09-24] MEDS ORDERED: Sodium Chloride 0.9% 10 ML Syringe FLUSH PRN (07:35)
[2022-09-24] MEDS ORDERED: Calcium Carbonate 500 MG Tab.Chew PO PRN (07:35)
[2022-09-24] MEDS ORDERED: Oxytocin/Lactated Ringers 10 UNIT/1,000 ML BAG IV SCH ×2 (07:45)
[2022-09-24] MEDS ORDERED: Lactated Ringers 1,000 ML IV SCH (07:45)
[2022-09-24 08:08] LABS: BASOPHILS ABSOLUTE AUTO 0.01 K/mm3 (0.01-0.08); BASOPHILS PERCENT AUTO 0.1 % (0.1-1.2); EOSINOPHILS ABSOLUTE AUTO 0.02 K/mm3 (0.04-0.36); EOSINOPHILS PERCENT AUTO 0.3 (0.7-5.8); HEMATOCRIT 34.8 % (34.1-44.9); HEMOGLOBIN 11.6 gm/dl (11.2-15.7); IMMATURE GRAN ABSOLUTE AUTO 0.04 K/mm3 (0.00-0.10); IMMATURE GRAN PERCENT AUTO 0.6 % (<=1.0); LYMPHOCYTES ABSOLUTE AUTO 1.09 K/mm3 (1.18-3.74); LYMPHOCYTES PERCENT AUTO 15.6 % (19.3-51.7); MEAN CORPUSCULAR HEMOGLOBIN 29.2 pg (25.6-32.2); MEAN CORPUSCULAR HGB CONC 33.3 g/dl (32.2-35.5); MEAN CORPUSCULAR VOLUME 87.7 fl (79.4-94.8); MEAN PLATELET VOLUME 9.9 fl (9.4-12.3); MONOCYTES ABSOLUTE AUTO 0.32 K/mm3 (0.24-0.36); MONOCYTES PERCENT AUTO 4.6 % (4.7-12.5); NEUTROPHILS ABSOLUTE AUTO 5.52 K/mm3 (1.56-6.13); NEUTROPHILS PERCENT AUTO 78.8 % (34.0-71.1); PLATELET COUNT,PLT 313 K/mm3 (182-369); RED BLOOD CELL COUNT 3.97 M/mm3 (3.98-5.22)
[2022-09-24] MEDS ORDERED: Witch Hazel Medicated Pads 40/Jar TOP PRN (18:49)
[2022-09-24] MEDS ORDERED: Benzocaine/Menthol 20%-0.5% Spray 78 GM Cannister TOP PRN (18:49)
[2022-09-24] MEDS: Ibuprofen 600 MG Tab PO PRN (19:40)
[2022-09-25] MEDS: Acetaminophen 325 MG Tab PO PRN ×2 (00:27→14:30)
[2022-09-25] MEDS: Ibuprofen 600 MG Tab PO PRN (08:28)
== END 2022-09-25 16:00 | disposition home or self-care (01) | DRG 560 ==
LOC: JD.OB 07:21 → OBSVTOIN 13:58 → JD.OB 13:59
PROVIDERS: ADMIT Obstetrics & Gynecology; ATTEND Obstetrics & Gynecology
PROC: 10E0XZZ Delivery of Products of Conception, External Approach (ICD-10-PCS; principal; 2022-09-24)
PROC: 10907ZC Drainage of Amniotic Fluid, Therapeutic from Products of Conception, Via Natural or Artificial Opening (ICD-10-PCS; 2022-09-24)
PROC: 3E033VJ Introduction of Other Hormone into Peripheral Vein, Percutaneous Approach (ICD-10-PCS; 2022-09-24)
DX: O24.429 Gestational diabetes mellitus in childbirth, unspecified control (principal); O69.81X0 Labor and delivery complicated by cord around neck, without compression, not applicable or unspecified; O99.513 Diseases of the respiratory system complicating pregnancy, third trimester; J45.909 Unspecified asthma, uncomplicated; Z37.0 Single live birth; Z87.891 Personal history of nicotine dependence; Z90.49 Acquired absence of other specified parts of digestive tract; Z3A.37 37 weeks gestation of pregnancy; Z79.84 Long term (current) use of oral hypoglycemic drugs; Z79.899 Other long term (current) drug therapy
CPT/HCPCS: 36415; 59025; 59409; 82947; 85025; 86592; A9270-GY; J2300; J2590; J7120